=== PATIENT | male | born 1980 | race Caucasian/White ===

== ENCOUNTER → 2019-04-25 | Outpatient (CLI) | payer BC ==
--- NOTE | 2019-04-25 15:40 | US ---
EXAMINATION TYPE: US abdomen complete DATE OF EXAM: 04/25/2019 COMPARISON: NONE CLINICAL HISTORY: R10.9 abd pain. Pain EXAM MEASUREMENTS: Liver Length: 17.2 cm Gallbladder Wall: .3 cm CBD: .3 cm Spleen: 13 cm Right Kidney: 11.2 x 5.0 x 4.5 cm Left Kidney: 11.9 x 6.2 x 4.3 cm Pancreas: Obscured by bowel gas Liver: There is increased echogenicity of the hepatic parenchyma with diminished visualization of th e portal triads most commonly relating to hepatic steatosis and limiting evaluation for underlying he patic masses. Gallbladder: wnl Evidence for sonographic Novoa's sign: No CBD: wnl Spleen: wnl Right Kidney: wnl Left Kidney: wnl Upper IVC: wnl Abd Aorta: wnl The intrahepatic portion of the IVC and proximal abdominal aorta are within normal limits. There is no evidence of cholelithiasis. Common bile duct is unremarkable. The visualized portions of the rodrigez creas are homogenous. The spleen is unremarkable. Kidneys are symmetric and free of hydronephrosis. No renal lesions are seen. IMPRESSION: 1. Sonographic findings most commonly related to hepatic steatosis. Correlate with liver function ebony ts. 2. No sonographic evidence of cholelithiasis nor acute cholecystitis. 3. Obscuration of the pancreas by overlying bowel gas.
== END | disposition home or self-care (01) ==
LOC: RADUSWWP 12:17
PROVIDERS: ATTEND Family Medicine
DX: R10.9 Unspecified abdominal pain (principal)
CPT/HCPCS: 76700

== ENCOUNTER 2020-01-02 17:55 | Inpatient (IN) | payer BC ==
--- NOTE | 2020-01-02 18:39 | ED ---
General Adult HPI - General Chief complaint: Shortness of Breath Stated complaint: covid Time Seen by Provider: 01/02/20 18:08 Source: EMS, RN notes reviewed, old records reviewed Mode of arrival: EMS Limitations: no limitations - History of Present Illness Initial comments: 39 -year-old transferred from outside hospital for evaluation of flulike sympto ms, dyspnea, fatigue. Patient tested positive for coronavirus, test was performed on Sunday approximately one week ago. His symptoms of worsened over the past several days. He has past medical history of asthma. He states he has been running high fevers, he's had generalized weakness and fatigue. He's had cough and congestion, poor appetite. - Related Data Home Medications Medication Instructions Recorded Confirmed Fluticasone/Salmeterol [Advair 1 inhalation PO DAILY 12/23/14 12/24/14 250-50 Diskus] Previous Rx's Medication Instructions Recorded oxyCODONE HCL/ACETAMINOPHEN 1 each PO Q6HR PRN #30 tab 12/24/14 [Percocet 5-325 mg] Allergies Allergy/AdvReac Type Severity Reaction Status Date / Time No Known Allergies Allergy Verified 01/02/20 18:10 Review of Systems ROS Statement: Those systems with pertinent positive or pertinent negative responses have been documented in the HPI. ROS Other: All systems not noted in ROS Statement are negative. Past Medical History Past Medical History: Asthma, GERD/Reflux History of Any Multi-Drug Resistant Organisms: None Reported Past Surgical History: Hernia Repair Past Anesthesia/Blood Transfusion Reactions: No Reported Reaction Past Psychological History: No Psychological Hx Reported Smoking Status: Never smoker Past Alcohol Use History: Occasional Past Drug Use History: None Reported - Past Family History Mother Family Medical History: No Reported History General Exam Limitations: no limitations General appearance: alert, in no apparent distress Head exam: Present: atraumatic, normocephalic Eye exam: Present: normal appearance ENT exam: Present: normal exam Neck exam: Present: normal inspection. Absent: tenderness, meningismus Respiratory exam: Present: wheezes, decreased breath sounds. Absent: respiratory distress Cardiovascular Exam: Present: regular rate, normal rhythm GI/Abdominal exam: Present: soft. Absent: distended, tenderness Extremities exam: Present: normal inspection, normal capillary refill. Absent: pedal edema Neurological exam: Present: alert, oriented X3, CN II-XII intact. Absent: motor sensory deficit Psychiatric exam: Present: normal affect, normal mood Skin exam: Present: warm, dry, intact. Absent: cyanosis, diaphoretic Course Vital Signs 01/02/20 18:07 Temperature 98.7 F Pulse Rate 82 Respiratory 18 Rate Blood Pressure 149/84 O2 Sat by Pulse 98 Oximetry Medical Decision Making - Medical Decision Making 31-year-old male, transferred for asthma exacerbation, coronavirus. Requesting pulmonology consult. Patient has mild dyspnea, with wheezing bilaterally. He is maintaining his oxygenation on nasal cannula. Other vital signs are stable. His laboratory testing reveals normal white blood cell count, stable hemoglobin, normal electrolytes, normal kidney function, normal lactic acid. Patient did have a chest x-ray, this individual be loaded into the venous system. Repeat chest x-ray will be obtained in the morning. Repeat laboratory studies will be obtained in the morning. He is placed on steroids and albuterol given his history of asthma and current wheezing. He will be monitored closely. I discussed the case with [facility] hospitalists, who will admit with pulmonology on consult. Disposition Clinical Impression: Asthma with acute exacerbation, COVID-19 Disposition: ADMITTED IP TO THIS HOSP Condition: Stable Is patient prescribed a controlled substance at d/c from ED?: No Referrals: Noel Smith MD [Primary Care Provider] - 1-2 days Decision to Admit Reason: Admit from EC Decision Date: 01/02/20 Decision Time: 18:39
[2020-01-02] MEDS: SODIUM CHLORIDE 0.9% 1,000 ML IV SCH (19:35)
[2020-01-02] MEDS: ALBUTEROL HFA INHALER INHALATION SCH (20:26)
[2020-01-02] MEDS ORDERED: FAMOTIDINE 20 MG TAB PO SCH (21:30)
[2020-01-02] MEDS: MONTELUKAST 10 MG TAB PO SCH (21:49)
[2020-01-02] MEDS: ONDANSETRON 4 MG/2 ML VIAL IVP PRN (21:52)
[2020-01-03] MEDS: ACETAMINOPHEN TAB 325 MG TAB PO PRN ×2 (01:44→20:01)
[2020-01-03] MEDS: SODIUM CHLORIDE 0.9% 1,000 ML IV SCH ×2 (02:39→18:24)
[2020-01-03 06:56] LABS: Basophils % (A) 0 %; Eosinophils % (A) 0 %; HCT 43.8 % (39.0-53.0); HGB 15.4 gm/dL (13.0-17.5); Lymphocytes # (A) 1.1 k/uL (1.0-4.8); Lymphocytes % (A) 15 %; MCH 30.4 pg (25.0-35.0); MCHC 35.1 g/dL (31.0-37.0); MCV 86.7 fL (80.0-100.0); Mean Platelet Volume 7.7; Monocytes # (A) 0.3 k/uL (0-1.0); Monocytes % (A) 4 %; Neutrophils # (A) 6.1 k/uL (1.3-7.7); Neutrophils % (A) 80 %; Platelet Count 133 k/uL (150-450); RBC 5.06 m/uL (4.30-5.90); RDW 12.4 % (11.5-15.5); WBC 7.7 k/uL (3.8-10.6)
--- NOTE | 2020-01-03 07:18 | XR ---
EXAMINATION TYPE: XR chest 1V portable DATE OF EXAM: 01/03/2020 CLINICAL HISTORY: Difficulty breathing progress study. covid 19 pneumonia TECHNIQUE: Single AP portable upright view of the chest is obtained. COMPARISON: Outside chest x-ray from yesterday. FINDINGS: Peripheral infiltrates left mid to lower lung and right midlung redemonstrated. Former sli ghtly more prominent, latter stable. Background low lung volumes. Cardiac silhouette size is stable a nd within normal limits. Osseous structures intact. IMPRESSION: Worsening peripheral left mid to lower lung acute infiltrates. Stable peripheral right mi dlung acute infiltrate. Background low lung volumes redemonstrated.
[2020-01-03 07:34] LABS: African American GFR (CKD) >90 (>60 ml/min/1.73 sqM); Anion Gap 6 mmol/L; Blood Urea Nitrogen 10 mg/dL (9-20); Calcium 8.3 mg/dL (8.4-10.2); Carbon Dioxide 29 mmol/L (22-30); Chloride 100 mmol/L (98-107); Glucose 112 mg/dL (74-99); Non-African American GFR(CKD) >90 (>60 ml/min/1.73 sqM); Potassium 3.8 mmol/L (3.5-5.1); Sodium 135 mmol/L (137-145)
[2020-01-03] MEDS: ALBUTEROL HFA INHALER INHALATION SCH ×4 (08:26→21:07)
[2020-01-03] MEDS ORDERED: predniSONE 20 MG TAB PO SCH (09:00)
[2020-01-03] MEDS ORDERED: ENOXAPARIN 40 MG/0.4 ML SYRINGE SQ SCH ×2 (09:45→10:00)
[2020-01-03 10:33] LABS: D-Dimer 0.25 mg/L FEU (<0.60)
[2020-01-03 10:38] LABS: C Reactive Protein 69.2 mg/L (<10.0)
[2020-01-03] MEDS: ENOXAPARIN 40 MG/0.4 ML SYRINGE SQ SCH (11:03)
[2020-01-03] MEDS: AZITHROMYCIN 500 MG TAB PO SCH (11:03)
[2020-01-03] MEDS: FLUTICASONE 50MCG/SPRAY NASAL 16GM EA NOSTRIL SCH (11:04)
[2020-01-03] MEDS: ONDANSETRON 4 MG/2 ML VIAL IVP PRN (11:19)
--- NOTE | 2020-01-03 12:44 | P.CNPUL ---
History of Present Illness Consult date: 01/03/20 Requesting physician: Juan Manuel Weiner Reason for consult: dyspnea, abnormal CXR/CT (Left mid to lower lung infiltrate with right midlung infiltrate) Chief complaint: Shortness of breath, fever, CoVID positive History of present illness: This is a very pleasant 39-year-old gentleman who follows with Dr. Smith as his primary care provider. He has a history of asthma treated with Advair, Singulair and albuterol in the outpatient setting. Approximately 1 week ago he developed fever, chills, diarrhea, worsening shortness of breath cough and congestion. He did test positive for CoVID 19 and was treating his symptoms at home. Yesterday he had worsening fatigue and fever and presented to [facility] and subsequently transferred here by EMS for further evaluation and care. He feels he may have been exposed at work where coworkers have been positive. He works at the [employer]. Chest x-ray reveals left mid to lower lung acute infiltrates and stent right midlung infiltrate. He is seen today in consultation on the regular medical floor. He is currently sitting up in bed. Awake and alert in no acute distress. He is maintaining O2 saturation in the mid 90s on 2 L/m per nasal cannula. T-max 101.9. Currently 99.4. White count 7.7. Hemoglobin 15.4. RDW 12.4. Platelets 133. Sodium 135. Potassium 3.8. Creatinine 1.04. Inflammatory markers added today revealed fibrinogen 573. LDH 847. Creatinine kinase 318. C-reactive protein 69.2. D- dimer 0.25. He's been initiated on azithromycin, Pepcid, Lovenox 40 mg daily, prednisone. Continue on Symbicort, albuterol, Singulair. Review of Systems REVIEW OF SYSTEMS: CONSTITUTIONAL: Fever, chills, fatigue. Denies any recent significant weight loss or weight gain. EYES: Denies change in vision. EARS, NOSE, MOUTH, THROAT: Denies headaches, denies sore throat. CARDIOVASCULAR: Denies chest pain, palpitations or syncopal episodes. RESPIRATORY: Positive for shortness of breath, cough, congestion no hemoptysis. GASTROINTESTINAL: Positive for nausea, diarrhea GENITOURINARY: Denies hematuria, denies infections. MUSKULOSKELETAL: Denies pain, denies swelling. INTEGUMENTARY: Denies rash, denies eczema. NEUROLOGICAL: Denies recent memory loss, no recent seizure activity. PSYCHIATRIC: Denies anxiety, denies depression. HEMATOLOGIC/LYMPHATIC: Denies anemia, denies enlarged lymph nodes. Past Medical History Past Medical History: Asthma, GERD/Reflux History of Any Multi-Drug Resistant Organisms: None Reported Past Surgical History: Hernia Repair Past Anesthesia/Blood Transfusion Reactions: No Reported Reaction Past Psychological History: No Psychological Hx Reported Smoking Status: Never smoker Past Alcohol Use History: Occasional Past Drug Use History: None Reported - Past Family History Mother Family Medical History: No Reported History Medications and Allergies Home Medications Medication Instructions Recorded Confirmed Type Fluticasone/Salmeterol [Advair 1 puff INHALATION RT-DAILY 12/23/14 01/02/20 History 250-50 Diskus] Albuterol Nebulized [Ventolin 2.5 mg INHALATION RT-QID PRN 01/02/20 01/02/20 History Nebulized] Famotidine 20 mg PO HS 01/02/20 01/02/20 History Fluticasone Nasal [place] [Flonase 2 spr EA NOSTRIL DAILY 01/02/20 01/02/20 History Nasal [place]] Montelukast [Singulair] 10 mg PO HS 01/02/20 01/02/20 History Allergies Allergy/AdvReac Type Severity Reaction Status Date / Time No Known Allergies Allergy Verified 01/02/20 19:01 Physical Exam Vitals: Vital Signs Temp Pulse Pulse Resp BP BP Pulse Ox 01/03/20 08:00 83 18 01/03/20 07:00 99.4 F 83 18 116/78 95 01/03/20 04:01 98.5 F 01/03/20 01:39 101.9 F H 90 20 130/76 95 01/02/20 20:59 99.1 F 90 18 129/76 98 01/02/20 20:11 99.0 F 85 19 128/82 97 01/02/20 19:45 99.2 F 90 19 144/92 97 01/02/20 18:07 98.7 F 82 18 149/84 98 Intake and Output 01/02/20 01/03/20 01/03/20 22:59 06:59 14:59 Other: Voiding Method Toilet # Voids 1 3 Weight 99.79 kg GENERAL EXAM: Alert, very pleasant 39-year-old gentleman, on 2 L nasal cannula, fairly comfortable in no apparent distress. HEAD: Normocephalic. EYES: Normal reaction of pupils, equal size. NOSE: Clear with pink turbinates. THROAT: No erythema or exudates. NECK: No masses, no JVD. CHEST: No chest wall deformity. LUNGS: Equal air entry with few scattered rhonchi. CVS: S1 and S2 normal with no audible murmur, regular rhythm. ABDOMEN: No hepatosplenomegaly, normal bowel sounds, no guarding or rigidity. SPINE: No scoliosis or deformity SKIN: No rashes CENTRAL NERVOUS SYSTEM: No focal deficits, tone is normal in all 4 extremities. EXTREMITIES: There is no peripheral edema. No clubbing, no cyanosis. Peripheral pulses are intact. Results - Laboratory Findings CBC and BMP: 01/03/20 06:29 01/03/20 06:29 PT/INR, D-dimer D-Dimer 0.25 mg/L FEU (<0.60) 01/03/20 10:04 Abnormal lab findings: Abnormal Labs 01/03/20 01/03/20 01/03/20 06:29 06:29 10:04 Plt Count 133 L Fibrinogen 573 H Sodium 135 L Glucose 112 H Calcium 8.3 L Lactate Dehydrogenase Creatine Kinase C-Reactive Protein 01/03/20 10:04 Plt Count Fibrinogen Sodium Glucose Calcium Lactate Dehydrogenase 847 H Creatine Kinase 318 H C-Reactive Protein 69.2 H - Diagnostic Findings Chest x-ray: image reviewed Assessment and Plan Assessment: 1 Acute CoVID 19 pneumonitis 2 Acute hypoxic respiratory failure secondary to above 3 Acute exacerbation of moderate persistent chronic bronchial asthma 4 Elevated inflammatory markers secondary to above Plan: The patient was seen and evaluated by Dr. Quiñones Chest x-ray and labs reviewed Continue isolation precautions Continue azithromycin, Symbicort, albuterol, Singulair Continue Lovenox, prednisone, Pepcid Repeat chest x-ray in a.m. Titrate FiO2 as tolerated We will continue to follow and make further recommendations based on his clinical status I, the cosigning physician, performed a history & physical examination of the patient. Lungs sounds with few scattered rhonchi. Maintaining good O2 saturations in the 90s on 2 L/m per nasal cannula. I discussed the assessment and plan of care with my nurse practitioner, Jennifer Perez. I attest to the above consultation as dictated by her. Time with Patient: Greater than 30
--- NOTE | 2020-01-03 14:03 | HP ---
HISTORY AND PHYSICAL CHIEF COMPLAINT: Shortness of breath, cough, fatigue and flu-like symptoms. HISTORY OF PRESENT ILLNESS: This 39-year-old gentleman with a past medical history of asthma, GERD, being followed by Dr. Smith in the outpatient setting, was not feeling well over the past couple of weeks. The patient initially had flu-like symptoms and subsequently the patient had shortness of breath and cough and sputum and fatigue and generalized weakness and poor appetite. Chest congestion also reported. The patient had COVID test done as well and found to be positive. Yesterday the patient went to [facility] and subsequently transferred to [facility] for further evaluation and treatment. Chest x-ray showed shadows indicating pneumonia. Pulmonary consultation has been sought. The patient also had biomarkers of active COVID infection with increase fibrin, increased LDH, increased CK and C-reactive protein also. Platelets are 133. There is no history of fever, rigors or chills. No history of headache, loss of consciousness, seizures at this time. The patient works in the [employer] and apparently a few of his colleagues had tested positive, according to him. PAST MEDICAL HISTORY: History of asthma, GERD. MEDICATIONS: Home medications are Singulair, Advair b.i.d., Flonase, and Ventolin. ALLERGIES: None. FAMILY HISTORY: No history of heart disease or strokes in the family. SOCIAL HISTORY: No history of smoking. No history of alcohol intake. REVIEW OF SYSTEMS: ENT: No diminished vision or hearing. CARDIOVASCULAR: As mentioned earlier. RESPIRATORY: As mentioned earlier. GI: No nausea, vomiting, diarrhea. : No dysuria. NERVOUS SYSTEM: No numbness or weakness. ALLERGY/IMMUNOLOGY: Asthma present. MUSCULOSKELETAL: As mentioned earlier. HEMATOLOGY: Anemia. ENDOCRINE: No history of diabetes mellitus. CONSTITUTIONAL: As mentioned earlier. DERMATOLOGY: Negative. RHEUMATOLOGY: Negative. PSYCHIATRY: As mentioned earlier. PHYSICAL EXAMINATION: GENERAL: Patient is alert and oriented times three. VITAL SIGNS: Pulse 83, blood pressure 116/78, respirations 18, temperature 99.4, pulse ox 94% on 2 liters. HEENT: Conjunctivae normal. Oral mucosa moist. NECK: No jugular venous distention. No carotid bruits. No lymph node enlargement. RESPIRATORY: Breath sounds diminished at the bases. A few rhonchi, no crackles. HEART: S1 and S2, muffled. ABDOMEN: Soft, no tenderness. No masses palpable. EXTREMITIES: No edema, no swelling. NERVOUS: No focal deficits. LABS: WBC 7.7, hemoglobin is 15.4, platelets 133. Fibrinogen 573. Sodium 135 and LDH is 847. Creatine kinase 318 and C-reactive protein is 16.2. Other labs are noted. ASSESSMENT: 1. Acute COVID-19 infection with acute bilateral pneumonia, possibly viral pneumonia secondary to COVID-19. 2. Hyponatremia. 3. Bronchial asthma acute exacerbation on chronic intermittent bronchial asthma. 4. Thrombocytopenia. 5. Elevated LDH and increase in the creatine kinase. 6. Increased CRP. 7. History of bronchial asthma. 8. History of gastroesophageal reflux disease. RECOMMENDATIONS AND DISCUSSION: In this 39-year-old gentleman who presented with multiple complex medical issues, at this time I recommend to continue the current management and continue symptomatic treatment. Continue the bronchodilators. Continue the antibiotics. We will check a procalcitonin. Oral steroids. We will also continue to monitor biomarkers as well as I would also recommend a troponin and cardiac workup as well. Infectious Disease has been consulted. We will check his eligibility for Remdesivir which could be an option here. I would also recommend a CT scan of the chest also as well. The prognosis is guarded because of multiple complex medical issues. Further recommendations to follow. See orders for further details. Symptomatic treatment also will be provided. MMODL / IJN: [id number] / MTDD
[2020-01-03 14:16] VITALS: BMI 29.8
--- NOTE | 2020-01-03 15:02 | CT ---
EXAMINATION TYPE: CT chest wo con DATE OF EXAM: 01/03/2020 COMPARISON: None HISTORY: covid [address] DLP: 1024 mGycm Automated exposure control for dose reduction was used. There are patchy areas of peripheral pneumonic infiltrate in the lungs bilaterally. There is pleural thickening and minimal fluid at the posterior lung bases. There is some patchy atelectasis at the pos terior lung bases. There is no mediastinal adenopathy. There are no hilar masses. The bony thorax is intact. IMPRESSION: Patchy bilateral airspace pneumonia. Mild patchy pleural thickening and atelectasis at the posterior lung bases. Mild fatty infiltration of the liver.
[2020-01-03 17:51] LABS: Ferritin 2602.5 ng/mL (22.0-322.0)
[2020-01-03] MEDS ORDERED: IPRATROPIUM-ALBUTEROL 3 ML NEB INHALATION PRN (18:34)
[2020-01-03 18:38] LABS: Appearance,Urine Clear (Clear); Bilirubin,Urine Negative (Negative); Blood,Urine Negative (Negative); Color,Urine Yellow; Glucose,Urine (UA) Negative (Negative); Ketones,Urine Negative (Negative); Leukocyte Esterase,Urine Negative (Negative); Nitrite,Urine Negative (Negative); Protein,Urine Trace (Negative); Specific Gravity,Urine 1.012 (1.001-1.035); Urobilinogen,Urine <2.0 mg/dL (<2.0)
[2020-01-03] MEDS: MONTELUKAST 10 MG TAB PO SCH (20:03)
[2020-01-03] MEDS: FAMOTIDINE 20 MG TAB PO SCH (20:03)
[2020-01-03] MEDS: SYMBICORT 160-4.5 MCG INHALER INHALATION SCH (21:07)
--- NOTE | 2020-01-04 00:11 | P.CONS ---
History of Present Illness - Reason for Consult Consult date: 01/03/20 covid 19 Requesting physician: Juan Manuel Weiner - Chief Complaint Fever and shortness of breath x one week - History of Present Illness Patient is 39-year-old male with a past medical history significant for asthma started having a problem with a fever about a week ago for which the patient has been evaluated at an urgent care last Sunday and apparently was diagnosed with the Covid19, patient has been advised symptomatic treatment however the patient be complaining of the daily spikes of fever and feeling weak, patient has been complaining of some shortness of breath, he also have a cough which is mild to moderate intensity is mostly dry in nature now being up any sputum. Denies any nausea no vomiting no comment can he did have some diarrhea but no loss of taste with persistent symptoms rather slight worsening he presented to [facility] yesterday patient subsequently has been transferred to [facility] for further management, since admission to the hospital the patient has been mostly afebrile highest temperature has been 99.1 patient did have a normal white count and no lymphopenia, patient did have a chest x-ray patient has worsening peripheral left mid to lower lung acute infiltrate, no LFTs has been done, patient has been evaluated before this morning and did ordered CRP, LDH and procalcitonin which are currently pending Review of Systems Positive point has been mentioned in the HPI rest of the systems are negative Past Medical History Past Medical History: Asthma, GERD/Reflux History of Any Multi-Drug Resistant Organisms: None Reported Past Surgical History: Hernia Repair Past Anesthesia/Blood Transfusion Reactions: No Reported Reaction Past Psychological History: No Psychological Hx Reported Smoking Status: Never smoker Past Alcohol Use History: Occasional Past Drug Use History: None Reported - Past Family History Mother Family Medical History: No Reported History Medications and Allergies Home Medications Medication Instructions Recorded Confirmed Type Fluticasone/Salmeterol [Advair 1 puff INHALATION RT-DAILY 12/23/14 01/02/20 History 250-50 Diskus] Albuterol Nebulized [Ventolin 2.5 mg INHALATION RT-QID PRN 01/02/20 01/02/20 History Nebulized] Famotidine 20 mg PO HS 01/02/20 01/02/20 History Fluticasone Nasal [place] [Flonase 2 spr EA NOSTRIL DAILY 01/02/20 01/02/20 History Nasal [place]] Montelukast [Singulair] 10 mg PO HS 01/02/20 01/02/20 History Allergies Allergy/AdvReac Type Severity Reaction Status Date / Time No Known Allergies Allergy Verified 01/02/20 19:01 Physical Exam Vitals: Vital Signs Temp Pulse Resp BP Pulse Ox 01/03/20 20:46 99.5 F 01/03/20 19:08 100.8 F H 96 20 135/69 94 L 01/03/20 16:47 97 01/03/20 16:00 84 17 01/03/20 14:40 98.6 F 84 17 116/71 94 L 01/03/20 08:00 83 18 01/03/20 07:00 99.4 F 83 18 116/78 95 01/03/20 04:01 98.5 F 01/03/20 01:39 101.9 F H 90 20 130/76 95 Intake and Output 01/03/20 01/03/20 01/04/20 14:59 22:59 06:59 Other: Voiding Method Toilet # Voids 2 2 Weight 99.79 kg GENERAL DESCRIPTION: Middle-aged male lying in bed, no distress. No tachypnea or accessory muscle of respiration use. HEENT: Shows Pallor , no scleral icterus. Oral mucous membrane is dry. No phary ngeal erythema or thrush NECK: Trachea central, no thyromegaly. LUNGS: Unlabored breathing. Decreased intensity of breath sounds. No wheeze or crackle. HEART: S1, S2, regular rate and rhythm. No loud murmur ABDOMEN: Soft, no tenderness , guarding or rigidity, no organomegaly EXTREMITIES: No edema of feet. SKIN: No rash, no masses palpable. NEUROLOGICAL: The patient is awake, alert, oriented x3, mood and affect normal. Results CBC & Chem 7: 01/03/20 06:29 01/03/20 06:29 Labs: Abnormal Lab Results - Last 24 Hours (Table) 01/03/20 01/03/20 01/03/20 Range/Units 06:29 06:29 10:04 Plt Count 133 L (150-450) k/uL Fibrinogen 573 H (200-500) mg/dL Sodium 135 L (137-145) mmol/L Glucose 112 H (74-99) mg/dL Calcium 8.3 L (8.4-10.2) mg/dL Ferritin (22.0-322.0) ng/mL Lactate Dehydrogenase (313-618) U/L Creatine Kinase (55-170) U/L C-Reactive Protein (<10.0) mg/L Procalcitonin (0.02-0.09) ng/mL Urine Protein (Negative) 01/03/20 01/03/20 01/03/20 Range/Units 10:04 10:04 18:00 Plt Count (150-450) k/uL Fibrinogen (200-500) mg/dL Sodium (137-145) mmol/L Glucose (74-99) mg/dL Calcium (8.4-10.2) mg/dL Ferritin 2602.5 H (22.0-322.0) ng/mL Lactate Dehydrogenase 847 H (313-618) U/L Creatine Kinase 318 H (55-170) U/L C-Reactive Protein 69.2 H (<10.0) mg/L Procalcitonin 0.16 H (0.02-0.09) ng/mL Urine Protein Trace H (Negative) Assessment and Plan Assessment: 1- patient presented to the hospital with fever of 1 week duration also with increasing shortness of breath and cough with slight worsening of the chest x- ray finding with concern for acute Covid 19 pneumonia, unfortunately blood work done this morning remains to be pending to see his eligibility for Remdesivir , the patient only symptom for more than 7 days, that may disqualify him for therapy, however will discuss further with pharmacist once the blood work is available (1) Pneumonia due to COVID-19 virus Current Visit: Yes Status: Acute Code(s): U07.1 - COVID-19; J12.89 - OTHER VIRAL PNEUMONIA SNOMED Code(s): 974869174 Plan: 1- patient has been started on Zithromax Lovenox and penicillin to continue 2-we will add zinc sulfate 3-droplet isolation 4-discuss with pharmacy once blood work completed to see if he still qualify for Remdesivir We will follow on clinical condition and cultures to further adjust medication if needed Thank you for this consultation will follow this patient with you Time with Patient: Greater than 30
[2020-01-04 06:49] LABS: Basophils % (A) 0 %; Eosinophils % (A) 0 %; HCT 41.6 % (39.0-53.0); HGB 13.5 gm/dL (13.0-17.5); Lymphocytes # (A) 0.9 k/uL (1.0-4.8); Lymphocytes % (A) 10 %; MCH 28.6 pg (25.0-35.0); MCHC 32.5 g/dL (31.0-37.0); MCV 87.9 fL (80.0-100.0); Mean Platelet Volume 7.2; Monocytes # (A) 0.4 k/uL (0-1.0); Monocytes % (A) 4 %; Neutrophils # (A) 8.1 k/uL (1.3-7.7); Neutrophils % (A) 86 %; Platelet Count 209 k/uL (150-450); RBC 4.73 m/uL (4.30-5.90); WBC 9.5 k/uL (3.8-10.6)
[2020-01-04] MEDS: ENOXAPARIN 40 MG/0.4 ML SYRINGE SQ SCH ×2 (07:50→20:26)
[2020-01-04] MEDS: AZITHROMYCIN 500 MG TAB PO SCH (07:51)
[2020-01-04] MEDS: predniSONE 10 MG TAB PO SCH (07:51)
[2020-01-04] MEDS: MULTIVITAMINS, THERA 1 EACH TAB PO SCH (07:51)
[2020-01-04] MEDS: FAMOTIDINE 20 MG TAB PO SCH ×2 (07:51→20:27)
[2020-01-04] MEDS ORDERED: FLUTICASONE INHALATION SCH (08:00)
[2020-01-04] MEDS ORDERED: SALMETEROL INHALATION SCH (08:00)
[2020-01-04] MEDS: ALBUTEROL HFA INHALER INHALATION SCH ×4 (08:08→19:29)
[2020-01-04] MEDS: SYMBICORT 160-4.5 MCG INHALER INHALATION SCH ×2 (08:08→19:29)
--- NOTE | 2020-01-04 08:23 | XR ---
EXAMINATION TYPE: XR chest 1V portable DATE OF EXAM: 01/04/2020 COMPARISON: 01/03/2020 INDICATION: Pneumonia TECHNIQUE: Single frontal view of the chest is obtained. FINDINGS: The heart size is normal. The pulmonary vasculature is normal. There is increasing linear opacity along the minor fissure. Correlate for atelectasis. There is some peripheral infiltrate through the left lung. Correlate for pneumonia. Follow-up is lakisha mmended. Findings are worsening. IMPRESSION: 1. Increasing platelike atelectasis right midlung. 2. Mild worsening of the left lower lobe infiltrate.
[2020-01-04 09:45] LABS: African American GFR (CKD) 110.2 (60.0-200.0); Albumin 3.8 g/dL (3.80-4.90); Albumin/Globulin Ratio 2.11 (1.60-3.17); Anion Gap 8.2 mmol/L (4.00-12.00); C Reactive Protein 7.4 mg/dL (0.0-0.8); Calcium 8.4 mg/dL (8.7-10.3); Carbon Dioxide 27.8 mmol/L (21.6-31.8); Globulin 1.8 g/dL (1.6-3.3); Non-African American GFR(CKD) 95.1 (60.0-200.0); Potassium 4.1 mmol/L (3.5-5.5); Total Bilirubin 0.5 mg/dL (0.3-1.2); Total Protein 5.6 g/dL (6.2-8.2)
[2020-01-04] MEDS: ZINC SULFATE 220 MG CAP PO SCH ×2 (13:01→21:28)
[2020-01-04] MEDS: FLUTICASONE 50MCG/SPRAY NASAL 16GM EA NOSTRIL SCH (13:02)
--- NOTE | 2020-01-04 13:27 | P.PN ---
Subjective Progress Note Date: 01/04/20 Principal diagnosis: CoVID 19 pneumonitis This is a very pleasant 39-year-old gentleman who follows with Dr. Smith as his primary care provider. He has a history of asthma treated with Advair, Singulair and albuterol in the outpatient setting. Approximately 1 week ago he developed fever, chills, diarrhea, worsening shortness of breath cough and congestion. He did test positive for CoVID 19 and was treating his symptoms at home. Yesterday he had worsening fatigue and fever and presented to [facility] and subsequently transferred here by EMS for further evaluation and care. He feels he may have been exposed at work where coworkers have been positive. He works at the [employer]. Chest x-ray reveals left mid to lower lung acute infiltrates and stent right midlung infiltrate. He is seen today in consultation on the regular medical floor. He is currently sitting up in bed. Awake and alert in no acute distress. He is maintaining O2 saturation in the mid 90s on 2 L/m per nasal cannula. T-max 101.9. Currently 99.4. White count 7.7. Hemoglobin 15.4. RDW 12.4. Platelets 133. Sodium 135. Potassium 3.8. Creatinine 1.04. Inflammatory markers added today revealed fibrinogen 573. LDH 847. Creatinine kinase 318. C-reactive protein 69.2. D- dimer 0.25. He's been initiated on azithromycin, Pepcid, Lovenox 40 mg daily, prednisone. Continue on Symbicort, albuterol, Singulair. The patient is seen today 01/04/2020 in follow-up on the regular medical floor. He is currently sitting up in bed. Awake and alert in no acute distress. He is comfortable at rest however went up doing any minimal activity he gets significant dyspnea on exertion. He is now on 3 L nasal cannula and maintaining O2 saturation in the low 90s. Computed tomography scan of the chest without contrast from yesterday revealed patchy bilateral airspace pneumonia. Mild patchy pleural thickening and atelectasis posterior lung bases. Mild fatty infiltration of the liver. White count 9.5. Hemoglobin 13.5. D-dimer 0.22. Sodium 137. Potassium 4.1. Creatinine 1.0. LDH 338. C-reactive protein 7.4. Pro-calcitonin 0.16. He remains on Lovenox, Pepcid, prednisone, zinc. Antibiotics in the form of azithromycin. Symbicort and bronchodilators. Objective - Vital Signs Vital signs: Vital Signs Temp 98.8 F 01/04/20 01:18 Pulse 91 01/04/20 08:00 Resp 18 01/04/20 08:00 BP 123/71 01/04/20 07:00 Pulse Ox 92 L 01/04/20 12:10 Intake & Output 01/03/20 01/04/20 01/04/20 18:59 06:59 18:59 Weight 99.79 kg Other: Voiding Method Toilet Toilet Toilet # Voids 2 2 - Exam GENERAL EXAM: Alert, very pleasant 39-year-old gentleman, on 3 L nasal cannula, fairly comfortable in no apparent distress. HEAD: Normocephalic. EYES: Normal reaction of pupils, equal size. NOSE: Clear with pink turbinates. THROAT: No erythema or exudates. NECK: No masses, no JVD. CHEST: No chest wall deformity. LUNGS: Equal air entry with few scattered rhonchi. CVS: S1 and S2 normal with no audible murmur, regular rhythm. ABDOMEN: No hepatosplenomegaly, normal bowel sounds, no guarding or rigidity. SPINE: No scoliosis or deformity SKIN: No rashes CENTRAL NERVOUS SYSTEM: No focal deficits, tone is normal in all 4 extremities. EXTREMITIES: There is no peripheral edema. No clubbing, no cyanosis. Peripheral pulses are intact. - Labs CBC & Chem 7: 01/04/20 06:20 01/04/20 06:20 Labs: Abnormal Lab Results - Last 24 Hours (Table) 01/03/20 01/03/20 01/03/20 Range/Units 10:04 10:04 18:00 Neutrophils # (1.3-7.7) k/uL Lymphocytes # (1.0-4.8) k/uL BUN/Creatinine Ratio (12.00-20.00) Ratio Calcium (8.7-10.3) mg/dL Ferritin 2602.5 H (22.0-322.0) ng/mL Lactate Dehydrogenase (120-246) U/L C-Reactive Protein (0.0-0.8) mg/dL Total Protein (6.2-8.2) g/dL Procalcitonin 0.16 H (0.02-0.09) ng/mL Urine Protein Trace H (Negative) 01/04/20 01/04/20 01/04/20 Range/Units 06:20 06:20 06:20 Neutrophils # 8.1 H (1.3-7.7) k/uL Lymphocytes # 0.9 L (1.0-4.8) k/uL BUN/Creatinine Ratio 11.00 L (12.00-20.00) Ratio Calcium 8.4 L (8.7-10.3) mg/dL Ferritin (22.0-322.0) ng/mL Lactate Dehydrogenase 338 H (120-246) U/L C-Reactive Protein 7.4 H (0.0-0.8) mg/dL Total Protein 5.6 L (6.2-8.2) g/dL Procalcitonin 0.16 H (0.02-0.09) ng/mL Urine Protein (Negative) Assessment and Plan Assessment: 1 Acute CoVID 19 pneumonitis 2 Acute hypoxic respiratory failure secondary to above 3 Acute exacerbation of moderate persistent chronic bronchial asthma 4 Elevated inflammatory markers secondary to above Plan: The patient was seen and evaluated by Dr. Quiñones CAT scan and labs reviewed, d-dimer within normal limits Continue isolation precautions Continue azithromycin, Symbicort, albuterol, Singulair Continue Lovenox, prednisone, Pepcid, zinc Repeat chest x-ray in a.m. Titrate FiO2 as tolerated We will continue to follow and make further recommendations based on his clini golden status I, the cosigning physician, performed a history & physical examination of the patient. Lungs sounds with few scattered rhonchi. Maintaining good O2 saturations in the 90s on 3 L/m per nasal cannula. I discussed the assessment and plan of care with my nurse practitioner, Jennifer Perez. I attest to the above note as dictated by her.
--- NOTE | 2020-01-04 16:14 | PN ---
PROGRESS NOTE DATE OF SERVICE: 01/04/2020 INTERVAL HISTORY: This 39-year-old gentleman is being followed Dr. Smith in the outpatient setting, who admitted with significant COVID pneumonia and acute hypoxic respiratory failure. The patient was started on empiric antibiotics also. The patient is also hypoxic at this time. Patient appears to be slightly more short of breath compared to yesterday. Most recent chest x-ray showed some slight worsening compared to previous one and Infectious Disease and as well as Pulmonary are following the patient closely. PAST MEDICAL HISTORY: Reviewed. REVIEW OF SYSTEMS: CARDIOVASCULAR: No angina or palpitations. RESPIRATORY: As mentioned earlier. GI: As mentioned earlier. : No dysuria. NERVOUS SYSTEM: No numbness or weakness. CURRENT MEDICATIONS: Reviewed and include Tylenol, Ventolin, DuoNeb, Zithromax, Symbicort, Lovenox, Pepcid, Flonase, Singulair, multivitamins, Zofran, prednisone, oral zinc. PHYSICAL EXAMINATION: GENERAL: Patient is alert and oriented times three. VITAL SIGNS: Pulse 91, blood pressure 123/57, respirations 18, temperature normal, pulse ox 98% on 3 liters. HEENT: Conjunctivae normal. Oral mucosa moist. NECK: No jugular venous distention. No carotid bruits. No lymph node enlargement. RESPIRATORY: Breath sounds diminished at the bases. Bilateral scattered rhonchi and crackles. Breathing efforts are markedly increased. HEART: S1 and S2, muffled. ABDOMEN: Soft, no tenderness. EXTREMITIES: No edema, no swelling. NERVOUS: No focal deficits. LABORATORY DATA: CBC within normal limits. Calcium is 8.4. LDH is 338. C-reactive protein is 7.4, Procalcitonin 0.16. ASSESSMENT: 1. Acute COVID-19 infection with acute bilateral pneumonia, possibly viral pneumonia with acute hypoxic respiratory failure secondary to COVID-19. 2. Hyponatremia. 3. Bronchial asthma acute exacerbation with chronic intermittent bronchial asthma. 4. Thrombocytopenia. 5. Elevated LDH and increased creatine kinase. 6. Increased CRP. 7. History of bronchial asthma. 8. History of gastroesophageal reflux disease. 9. History of elevated procalcitonin. RECOMMENDATIONS AND DISCUSSION: In this 39-year-old gentleman who presented with multiple complex medical issues, continue with the current medications. Continue with intensive bronchodilator treatment and continue empiric antibiotics. I would also recommend a D-dimer. Dr. Quiñones saw the patient and recommended D-dimer. If the D-dimer is more than 0.6, we will obtain a CT angio. Otherwise add zinc to the current regimen. Continue with Lovenox. I would also recommend Infectious Disease evaluation and possibly consider Remdesivir. Prognosis is guarded because of multiple complex medical issues. Further recommendations to follow. MMJIGNESHL / IJN: [id number] /
[2020-01-04] MEDS: MONTELUKAST 10 MG TAB PO SCH (20:26)
[2020-01-04] MEDS: ACETAMINOPHEN TAB 325 MG TAB PO PRN (20:26)
[2020-01-04 22:50] LABS: INR 0.92 (0.90-1.11); Prothrombin Time 9.9 sec (9.9-11.9)
--- NOTE | 2020-01-05 03:06 | PN ---
PROGRESS NOTE DATE OF SERVICE: 01/04/2020 REASON FOR FOLLOWUP: Acute COVID-19 pneumonia. INTERVAL HISTORY: The patient did spike a fever yesterday of 101.9 as well as 100.8. The patient also requiring supplemental oxygen of 3 L nasal cannula. The patient denies having any chest pain. Breathing slightly comfortably. The cough has decreased in intensity. No nausea, no vomiting. No abdominal pain or diarrhea. PHYSICAL EXAMINATION: Blood pressure 136/82 with a pulse of 98, temperature of 98, T-max is 101. He is 94% on 3 L nasal cannula General description is a young male lying in bed in no distress. RESPIRATORY SYSTEM: Unlabored breathing, decreased intense breath sounds. No wheeze. HEART: S1, S2. Regular rate and rhythm. ABDOMEN: Soft, no tenderness. LABS: Hemoglobin 13.5, white count 9.5. CRP did improve to 7.4. The LDH is 338. DIAGNOSTIC IMPRESSION AND PLAN: Patient with acute COVID-19 pneumonia. Patient is currently covered with the Zithromax, Lovenox, prednisone and zinc. He may benefit from Remdesivir. This was discussed in detail with the pharmacist. However, the patient currently does not qualify for remdisivir per institution policy as the patient has symptoms for more than 7 days. This will be discussed further with MORGUE TECHNICIAN tomorrow as the patient will definitely benefit from Remdesivir at this point to prevent progressive respiratory failure and further complication. MONETL / JAMES: [id number] / MTDD
[2020-01-05 06:39] LABS: Basophils % (A) 0 %; Eosinophils % (A) 0 %; HCT 41.2 % (39.0-53.0); HGB 13.9 gm/dL (13.0-17.5); Lymphocytes # (A) 1.4 k/uL (1.0-4.8); Lymphocytes % (A) 11 %; MCH 29.8 pg (25.0-35.0); MCHC 33.8 g/dL (31.0-37.0); MCV 88.2 fL (80.0-100.0); Monocytes # (A) 0.6 k/uL (0-1.0); Monocytes % (A) 5 %; Neutrophils # (A) 10.3 k/uL (1.3-7.7); Neutrophils % (A) 83 %; Platelet Count 285 k/uL (150-450); RBC 4.67 m/uL (4.30-5.90); RDW 12.5 % (11.5-15.5); WBC 12.4 k/uL (3.8-10.6)
--- NOTE | 2020-01-05 08:01 | XR ---
EXAMINATION TYPE: XR chest 1V portable DATE OF EXAM: 01/05/2020 COMPARISON: 01/04/2020 INDICATION: Covid 19, increasing shortness of breath TECHNIQUE: Single frontal view of the chest is obtained. FINDINGS: The heart size is normal. The pulmonary vasculature is normal. Mild infiltrate is within the right mid and upper lung field. Mild peripheral infiltrates at the left base. IMPRESSION: 1. Findings compatible with a typical pneumonia. There may be slight improvement from recent comparis on but remains greater than the initial 01/03/2020 exam
[2020-01-05] MEDS: predniSONE 10 MG TAB PO SCH (08:50)
[2020-01-05] MEDS: MULTIVITAMINS, THERA 1 EACH TAB PO SCH (08:50)
[2020-01-05] MEDS: FLUTICASONE 50MCG/SPRAY NASAL 16GM EA NOSTRIL SCH (08:50)
[2020-01-05] MEDS: ENOXAPARIN 40 MG/0.4 ML SYRINGE SQ SCH ×2 (08:50→19:53)
[2020-01-05] MEDS: FAMOTIDINE 20 MG TAB PO SCH ×2 (08:50→19:52)
[2020-01-05] MEDS: AZITHROMYCIN 500 MG TAB PO SCH (08:50)
[2020-01-05] MEDS: ZINC SULFATE 220 MG CAP PO SCH ×2 (08:50→19:52)
[2020-01-05 09:08] LABS: African American GFR (CKD) 110.2 (60.0-200.0); Albumin 3.6 g/dL (3.80-4.90); Albumin/Globulin Ratio 1.89 (1.60-3.17); Anion Gap 7.4 mmol/L (4.00-12.00); Calcium 8.2 mg/dL (8.7-10.3); Carbon Dioxide 28.6 mmol/L (21.6-31.8); Globulin 1.9 g/dL (1.6-3.3); Non-African American GFR(CKD) 95.1 (60.0-200.0); Total Bilirubin 0.6 mg/dL (0.3-1.2); Total Protein 5.5 g/dL (6.2-8.2)
[2020-01-05] MEDS: ALBUTEROL HFA INHALER INHALATION SCH ×4 (09:47→20:17)
[2020-01-05] MEDS: SYMBICORT 160-4.5 MCG INHALER INHALATION SCH ×2 (09:47→20:17)
[2020-01-05] MEDS ORDERED: REMDESIVIR (EUA) 200 MG in SODIUM CHLORIDE 0.9% 250 ML IVPB ONE (12:00)
--- NOTE | 2020-01-05 16:37 | P.PN ---
Subjective Progress Note Date: 01/05/20 Principal diagnosis: Covid 19 related pneumonitis This is a very pleasant 39-year-old gentleman who follows with Dr. Smith as his primary care provider. He has a history of asthma treated with Advair, Singulair and albuterol in the outpatient setting. Approximately 1 week ago he developed fever, chills, diarrhea, worsening shortness of breath cough and congestion. He did test positive for CoVID 19 and was treating his symptoms at home. Yesterday he had worsening fatigue and fever and presented to [facility] and subsequently transferred here by EMS for further evaluation and care. He feels he may have been exposed at work where coworkers have been positive. He works at the [employer]. Chest x-ray reveals left mid to lower lung acute infiltrates and stent right midlung infiltrate. He is seen today in consultation on the regular medical floor. He is currently sitting up in bed. Awake and alert in no acute distress. He is maintaining O2 saturation in the mid 90s on 2 L/m per nasal cannula. T-max 101.9. Currently 99.4. White count 7.7. Hemoglobin 15.4. RDW 12.4. Platelets 133. Sodium 135. Potassium 3.8. Creatinine 1.04. Inflammatory markers added today revealed fibrinogen 573. LDH 847. Creatinine kinase 318. C-reactive protein 69.2. D- dimer 0.25. He's been initiated on azithromycin, Pepcid, Lovenox 40 mg daily, prednisone. Continue on Symbicort, albuterol, Singulair. The patient is seen today 01/04/2020 in follow-up on the regular medical floor. He is currently sitting up in bed. Awake and alert in no acute distress. He is comfortable at rest however went up doing any minimal activity he gets signifi cant dyspnea on exertion. He is now on 3 L nasal cannula and maintaining O2 saturation in the low 90s. Computed tomography scan of the chest without contrast from yesterday revealed patchy bilateral airspace pneumonia. Mild patchy pleural thickening and atelectasis posterior lung bases. Mild fatty infiltration of the liver. White count 9.5. Hemoglobin 13.5. D-dimer 0.22. Sodium 137. Potassium 4.1. Creatinine 1.0. LDH 338. C-reactive protein 7.4. Pro-calcitonin 0.16. He remains on Lovenox, Pepcid, prednisone, zinc. Antibiotics in the form of azithromycin. Symbicort and bronchodilators. On 01/05/2020 patient seen in follow-up on a general medical surgical floor. He is awake and alert, in no acute distress, patient is very short of breath with any exertion, occasional cough, no chest pain, he is on 3-4 L of supplemental oxygen, his pulse ox of 93%, he has been having intermittent fevers, with T-max of 101.5F in last 24 hours. Today's chest x-ray shows findings compatible with atypical pneumonia, with possibility of slight improvement from recent comparison. Patient was started on his first dose of Remdesivir. He is on Lovenox 40 mg subcu twice daily, azithromycin and Rocephin, nebulized bronchodilators, oral prednisone at 30 mg daily, and zinc supplement. Today's labs have been reviewed white count is 12.4, hemoglobin is 13.9, d-dimer is 0.22, electric with renal profile were within normal limits, LDH is 349, CRP is 10, pro-calcitonin was 0.16 Objective - Vital Signs Vital signs: Vital Signs Temp 98.2 F 01/05/20 15:00 Pulse 83 01/05/20 15:00 Resp 20 01/05/20 15:00 BP 121/73 01/05/20 15:00 Pulse Ox 93 L 01/05/20 15:00 Intake & Output 01/04/20 01/05/20 01/05/20 18:59 06:59 18:59 Other: Voiding Method Toilet Toilet # Voids 3 2 3 - Exam GENERAL EXAM: Alert, very pleasant, 39-year-old white male, 3 L of oxygen and pulse ox of 93%, resting in bed, awake and alert, answering questions appropriately, short of breath with any exertion, comfortable in no apparent distress. HEAD: Normocephalic/atraumatic. EYES: Normal reaction of pupils, equal size. Conjunctiva pink, sclera white. NOSE: Clear with pink turbinates. THROAT: No erythema or exudates. NECK: No masses, no JVD, no thyroid enlargement, no adenopathy. CHEST: No chest wall deformity. Symmetrical expansion. LUNGS: Equal air entry with no crackles, wheeze, rhonchi or dullness. CVS: Regular rate and rhythm, normal S1 and S2, no gallops, no murmurs, no rubs ABDOMEN: Soft, nontender. No hepatosplenomegaly, normal bowel sounds, no guarding or rigidity. EXTREMITIES: No clubbing, no edema, no cyanosis, 2+ pulses and upper and lower extremities. MUSCULOSKELETAL: Muscle strength and tone normal. SPINE: No scoliosis or deformity SKIN: No rashes CENTRAL NERVOUS SYSTEM: Alert and oriented -3. No focal deficits, tone is normal in all 4 extremities. PSYCHIATRIC: Alert and oriented -3. Appropriate affect. Intact judgment and insight. - Labs CBC & Chem 7: 01/05/20 06:18 01/05/20 06:18 Labs: Abnormal Lab Results - Last 24 Hours (Table) 01/05/20 01/05/20 Range/Units 06:18 06:18 WBC 12.4 H (3.8-10.6) k/uL Neutrophils # 10.3 H (1.3-7.7) k/uL Calcium 8.2 L (8.7-10.3) mg/dL Lactate Dehydrogenase 349 H (120-246) U/L C-Reactive Protein 10.0 H (0.0-0.8) mg/dL Total Protein 5.5 L (6.2-8.2) g/dL Albumin 3.60 L (3.80-4.90) g/dL Assessment and Plan Plan: 1 Acute CoVID 19 pneumonitis 2 Acute hypoxic respiratory failure secondary to above 3 Acute exacerbation of moderate persistent chronic bronchial asthma 4 Elevated inflammatory markers secondary to above Plan: Patient has been started on his first dose of Remdesivir, continue oral prednisone, continue azithromycin and Rocephin, tinea nebulized inhalers including Symbicort and albuterol. Continue Lovenox, Pepcid, and zinc supplement. Chest x-ray still shows mild infiltrate within the right mid and upper lung field with mild peripheral infiltrates the possibility of slight improvement from recent comparison. Continues to be intermittently febrile. Continue monitoring patient's oxygenation requirements and dyspnea. I performed a history & physical examination of the patient and discussed their management with my nurse practitioner, Jessica Meneses. I reviewed the nurse practitioner's note and agree with the documented findings and plan of care. Lung sounds are positive for . The findings and the impression was discussed with the patient. I attest to the documentation by the nurse practitioner. Time with Patient: Less than 30
--- NOTE | 2020-01-05 18:49 | PN ---
PROGRESS NOTE DATE OF SERVICE: 01/05/2020 This 39-year-old gentleman who was followed by Dr. Smith and Muriel Noel in the setting was admitted with acute COVID-19 pneumonia. The patient had bilateral interstitial pneumonia which was worsening. Remdesivir was initiated by Dr. Castillo per protocol. Patient is being closely monitored. The patient is also on Lovenox. Past medical history reviewed. The patient is able to maintain the oxygen saturation with oxygen by nasal cannula. REVIEW OF SYSTEMS: CARDIOVASCULAR SYSTEM: No angina, palpitations. RESPIRATORY SYSTEM: As mentioned earlier. GI: As mentioned earlier. : No dysuria or retention. NERVOUS SYSTEM: No numbness, weakness. CURRENT MEDICATIONS: 1. Ventolin. 2. DuoNeb. 3. Zithromax. 4. Symbicort. 5. Lovenox. 6. Pepcid. 7. Flonase. 8. Singulair. 9. Multivitamins. 10.Zofran. 11.Prednisone. 12.Remdesivir. 13.Orazinc. PHYSICAL EXAMINATION: Patient is alert, oriented x3. Pulse 83, blood pressure 121/70, respiration 20, temperature 98.2, T-max 100.6, pulse ox 93% on 3 L. HEENT: Conjunctivae normal. NECK: No jugular venous distention. CARDIOVASCULAR SYSTEM: S1, S2 muffled. RESPIRATORY SYSTEM: Breath sounds diminished at the bases. A few scattered rhonchi and crackles. ABDOMEN: Soft, non-tender. LEGS: No edema. No swelling. NERVOUS SYSTEM: No focal deficit. LABS: WBC 12.2, hemoglobin 13, sodium 138. LDH is 349. ASSESSMENT: 1. Acute COVID-19 infection with acute bilateral pneumonia, possibly viral pneumonia, with acute hypoxic respiratory failure secondary to COVID-19 as well as sepsis, present on admission. 2. Hyponatremia. 3. Acute bronchial asthma, acute exacerbation, with acute intermittent bronchial asthma. 4. Thrombocytopenia. 5. Elevated LDH and increased creatine kinase. 6. Increased CRP. 7. History of bronchial asthma. 8. History of gastroesophageal reflux disease. 9. Elevated procalcitonin. 10.Continued fever. RECOMMENDATIONS AND DISCUSSION: I recommend to continue current medications, continue with the monitoring, symptomatic treatment. Continue with the remdesivir. I would also recommend a course of IV antibiotics in the form of Rocephin. Sputum culture. Continue with steroids. Monitor blood sugars closely. Continue the Lovenox. Continue with zinc. Otherwise, follow closely with Pulmonary as well as Infectious Disease. Prognosis guarded because of multiple complex medical issues. Further recommendations to follow. MMODL / IJN: [id number] /
[2020-01-05] MEDS: MONTELUKAST 10 MG TAB PO SCH (19:52)
--- NOTE | 2020-01-05 22:50 | PN ---
PROGRESS NOTE DATE OF SERVICE: 01/05/2020 REASON FOR FOLLOWUP: Acute COVID-19 pneumonia. INTERVAL HISTORY: The patient did have a low-grade fever of 100.6 this morning. The patient subsequently is afebrile. The patient is breathing slightly comfortably. The patient denies having any chest pain. Cough has decreased in intensity, mostly dry in nature. No nausea, no vomiting. No abdominal pain or diarrhea. PHYSICAL EXAMINATION: Blood pressure 135/71 with a pulse of 88, temperature 98.2. He is 96% on room air. General description is a middle-aged male up in the bed in no distress. RESPIRATORY SYSTEM: Unlabored breathing with decreased intensity of breath sounds. No wheeze. HEART: S1, S2. Regular rate and rhythm. ABDOMEN: Soft. No tenderness. EXTREMITIES: No edema of the feet. LABS: Hemoglobin 13.9, white count 12.4, BUN of 12, creatinine 1.0. DIAGNOSTIC IMPRESSION AND PLAN: Patient with acute COVID-19 pneumonia. PLAN: The patient has been started on remdesivir; to continue in addition to the dexamethasone, Lovenox, and we will monitor his clinical course closely. Questions and concerns were answered. MMODL / IJN: [id number] /
[2020-01-06 07:22] LABS: Basophils % (A) 0 %; Eosinophils % (A) 0 %; HCT 42.7 % (39.0-53.0); HGB 14.4 gm/dL (13.0-17.5); Lymphocytes # (A) 1.3 k/uL (1.0-4.8); Lymphocytes % (A) 16 %; MCH 29.7 pg (25.0-35.0); MCHC 33.8 g/dL (31.0-37.0); Mean Platelet Volume 6.8; Monocytes # (A) 0.7 k/uL (0-1.0); Monocytes % (A) 8 %; Neutrophils # (A) 5.9 k/uL (1.3-7.7); Neutrophils % (A) 73 %; Platelet Count 345 k/uL (150-450); RBC 4.85 m/uL (4.30-5.90); RDW 12.5 % (11.5-15.5)
[2020-01-06] MEDS: SYMBICORT 160-4.5 MCG INHALER INHALATION SCH ×2 (08:56→20:17)
[2020-01-06] MEDS: ALBUTEROL HFA INHALER INHALATION SCH ×4 (08:56→20:17)
[2020-01-06] MEDS: FAMOTIDINE 20 MG TAB PO SCH ×2 (09:20→20:22)
[2020-01-06] MEDS: ENOXAPARIN 40 MG/0.4 ML SYRINGE SQ SCH ×2 (09:20→20:22)
[2020-01-06] MEDS: ZINC SULFATE 220 MG CAP PO SCH ×2 (09:21→20:22)
[2020-01-06] MEDS: predniSONE 10 MG TAB PO SCH (09:21)
[2020-01-06] MEDS: AZITHROMYCIN 500 MG TAB PO SCH (09:21)
[2020-01-06 13:00] LABS: African American GFR (CKD) 131.3 (60.0-200.0); Albumin 3.7 g/dL (3.80-4.90); Albumin/Globulin Ratio 2.18 (1.60-3.17); Anion Gap 9.6 mmol/L (4.00-12.00); BUN/Creat Ratio 16.25 Ratio (12.00-20.00); Calcium 8.5 mg/dL (8.7-10.3); Carbon Dioxide 26.4 mmol/L (21.6-31.8); Globulin 1.7 g/dL (1.6-3.3); Non-African American GFR(CKD) 113.3 (60.0-200.0); Total Bilirubin 0.5 mg/dL (0.2-1.2); Total Protein 5.4 g/dL (6.2-8.2)
[2020-01-06 13:06] LABS: C Reactive Protein 8.6 mg/dL (0.0-0.8)
[2020-01-06] MEDS: FLUTICASONE 50MCG/SPRAY NASAL 16GM EA NOSTRIL SCH (13:16)
[2020-01-06] MEDS: MULTIVITAMINS, THERA 1 EACH TAB PO SCH (13:17)
[2020-01-06] MEDS: REMDESIVIR (EUA) 100 MG in SODIUM CHLORIDE 0.9% 250 ML IVPB SCH (13:17)
--- NOTE | 2020-01-06 15:17 | P.PN ---
Subjective Progress Note Date: 01/06/20 Principal diagnosis: Covid 19 related pneumonitis This is a very pleasant 39-year-old gentleman who follows with Dr. Smith as his primary care provider. He has a history of asthma treated with Advair, Singulair and albuterol in the outpatient setting. Approximately 1 week ago he developed fever, chills, diarrhea, worsening shortness of breath cough and congestion. He did test positive for CoVID 19 and was treating his symptoms at home. Yesterday he had worsening fatigue and fever and presented to [facility] and subsequently transferred here by EMS for further evaluation and care. He feels he may have been exposed at work where coworkers have been positive. He works at the [email or web address]. Chest x-ray reveals left mid to lower lung acute infiltrates and stent right midlung infiltrate. He is seen today in consultation on the regular medical floor. He is currently sitting up in bed. Awake and alert in no acute distress. He is maintaining O2 saturation in the mid 90s on 2 L/m per nasal cannula. T-max 101.9. Currently 99.4. White count 7.7. Hemoglobin 15.4. RDW 12.4. Platelets 133. Sodium 135. Potassium 3.8. Creatinine 1.04. Inflammatory markers added today revealed fibrinogen 573. LDH 847. Creatinine kinase 318. C-reactive protein 69.2. D- dimer 0.25. He's been initiated on azithromycin, Pepcid, Lovenox 40 mg daily, prednisone. Continue on Symbicort, albuterol, Singulair. The patient is seen today 01/04/2020 in follow-up on the regular medical floor. He is currently sitting up in bed. Awake and alert in no acute distress. He is comfortable at rest however went up doing any minimal activity he gets signifi cant dyspnea on exertion. He is now on 3 L nasal cannula and maintaining O2 saturation in the low 90s. Computed tomography scan of the chest without contrast from yesterday revealed patchy bilateral airspace pneumonia. Mild patchy pleural thickening and atelectasis posterior lung bases. Mild fatty infiltration of the liver. White count 9.5. Hemoglobin 13.5. D-dimer 0.22. Sodium 137. Potassium 4.1. Creatinine 1.0. LDH 338. C-reactive protein 7.4. Pro-calcitonin 0.16. He remains on Lovenox, Pepcid, prednisone, zinc. Antibiotics in the form of azithromycin. Symbicort and bronchodilators. On 01/05/2020 patient seen in follow-up on a general medical surgical floor. He is awake and alert, in no acute distress, patient is very short of breath with any exertion, occasional cough, no chest pain, he is on 3-4 L of supplemental oxygen, his pulse ox of 93%, he has been having intermittent fevers, with T-max of 101.5F in last 24 hours. Today's chest x-ray shows findings compatible with atypical pneumonia, with possibility of slight improvement from recent comparison. Patient was started on his first dose of Remdesivir. He is on Lovenox 40 mg subcu twice daily, azithromycin and Rocephin, nebulized bronchodilators, oral prednisone at 30 mg daily, and zinc supplement. Today's labs have been reviewed white count is 12.4, hemoglobin is 13.9, d-dimer is 0.22, electric with renal profile were within normal limits, LDH is 349, CRP is 10, pro-calcitonin was 0.16 On 01/06/2020 patient seen in follow-up on general medical surgical floor, he is resting comfortably in bed still has exertional dyspnea, still requiring supplemental oxygen, currently at 3 L, with pulse ox of 95%, his been afebrile in the last 24 hours, hemodynamically patient is stable, as no cough with no s ignificant phlegm production. No complaints of chest pain. Cough has improved, no nausea vomiting or diarrhea, no abdominal pain. Patient has been started on Remdesivir, he received his first dose yesterday, he is due for his second dose today. ID service is following, patient is also on Rocephin and azithromycin. Today's lab 7 reviewed, CBC is within normal limits, electrolytes and renal pro file are unremarkable, LDH has slightly trended up, up to 395 from 349 9 yesterday's labs, CRP is 8.6, on the decline, pro-calcitonin was 0.16, d-dimer was not elevated at 0.22, patient is on Lovenox 40 mg twice daily, patient is on oral steroids prednisone 30 mg daily, and inhalers including Symbicort and rescue inhaler. Objective - Vital Signs Vital signs: Vital Signs Temp 97.6 F 01/06/20 14:59 Pulse 71 01/06/20 14:59 Resp 20 01/06/20 14:59 BP 127/79 01/06/20 14:59 Pulse Ox 95 01/06/20 14:59 Intake & Output 01/05/20 01/06/20 01/06/20 18:59 06:59 18:59 Other: Voiding Method Toilet # Voids 3 2 2 - Exam GENERAL EXAM: Alert, very pleasant, 39-year-old white male, 3 L of oxygen and pulse ox of 95%, resting in bed, awake and alert, answering questions appropriately, short of breath with any exertion, comfortable in no apparent distress. HEAD: Normocephalic/atraumatic. EYES: Normal reaction of pupils, equal size. Conjunctiva pink, sclera white. NOSE: Clear with pink turbinates. THROAT: No erythema or exudates. NECK: No masses, no JVD, no thyroid enlargement, no adenopathy. CHEST: No chest wall deformity. Symmetrical expansion. LUNGS: Equal air entry with no crackles, wheeze, rhonchi or dullness. CVS: Regular rate and rhythm, normal S1 and S2, no gallops, no murmurs, no rubs ABDOMEN: Soft, nontender. No hepatosplenomegaly, normal bowel sounds, no guarding or rigidity. EXTREMITIES: No clubbing, no edema, no cyanosis, 2+ pulses and upper and lower extremities. MUSCULOSKELETAL: Muscle strength and tone normal. SPINE: No scoliosis or deformity SKIN: No rashes CENTRAL NERVOUS SYSTEM: Alert and oriented -3. No focal deficits, tone is normal in all 4 extremities. PSYCHIATRIC: Alert and oriented -3. Appropriate affect. Intact judgment and insight. - Labs CBC & Chem 7: 01/06/20 06:56 01/06/20 06:56 Labs: Abnormal Lab Results - Last 24 Hours (Table) 01/06/20 Range/Units 06:56 Calcium 8.5 L (8.7-10.3) mg/dL Lactate Dehydrogenase 395 H (120-246) U/L C-Reactive Protein 8.6 H (0.0-0.8) mg/dL Total Protein 5.4 L (6.2-8.2) g/dL Albumin 3.70 L (3.80-4.90) g/dL Assessment and Plan Plan: 1 Acute CoVID 19 pneumonitis 2 Acute hypoxic respiratory failure secondary to above 3 Acute exacerbation of moderate persistent chronic bronchial asthma 4 Elevated inflammatory markers secondary to above Plan: Continue current medical treatment, continue oral steroids, antibiotics, patient will recieve second dose of Remdesivir, fever pattern has improved cough has subsided, no nausea vomiting diarrhea, no worsening dyspnea. We'll continue to follow, follow inflammatory markers, monitor febrile pattern, dyspnea, and O2 demand I performed a history & physical examination of the patient and discussed their management with my nurse practitioner, Jessica Meneses. I reviewed the nurse practitioner's note and agree with the documented findings and plan of care. Lung sounds are positive for . The findings and the impression was discussed with the patient. I attest to the documentation by the nurse practitioner. Time with Patient: Less than 30
[2020-01-06] MEDS: MONTELUKAST 10 MG TAB PO SCH (20:22)
--- NOTE | 2020-01-06 21:08 | PN ---
PROGRESS NOTE DATE OF SERVICE: 01/06/2020 This 39-year-old gentleman admitted with Covid pneumonia is being closely monitored. Patient has empiric antibiotics. The patient is hypoxic and patient is on supplement oxygen. Pulmonology and Infectious Disease following the patient closely. The patient was also receiving Remdesivir at this time. There is no history of fever, rigors, chills. The patient is short of breath on even mild exertion. PHYSICAL EXAMINATION: Alert and oriented times three. Pulse 71 blood pressure 127/79, respiration 20, temperature 97.2, pulse ox 94% on 3 L. HEENT is conjunctivae normal. NECK: No JVD. CARDIOVASCULAR: S1, S2 muffled. RESPIRATION: Breath sounds diminished in the bases. A few scattered rhonchi. ABDOMEN: Soft. NERVOUS SYSTEM: No focal deficits. LABS: At this time shows WBC 8, hemoglobin is 14.4. Otherwise, LDH is 395 and C-reactive protein is 8.6, and albumin is 3.70. Procalcitonin is elevated. ASSESSMENT: 1. Acute Covid-19 infection with acute bilateral pneumonia possibly viral pneumonia with acute hypoxic respiratory failure secondary to Covid-19 as well as sepsis present on admission. 2. Hypoalbuminemia. 3. Hyponatremia. 4. Acute bronchial asthma, acute exacerbation with chronic intermittent bronchial asthma, baseline. 5. Thrombocytopenia. 6. Elevated LDH and increased creatinine kinase. 7. Increased CRP. 8. History of bronchial asthma. 9. History of gastroesophageal reflux disease. 10.Elevated procalcitonin. 11.Continued fever improved. RECOMMENDATIONS AND DISCUSSION: This 39-year-old gentleman who presented with multiple complex medical issues, we will monitor the patient closely. Continue the bronchodilators, steroids as well as IV antibiotics. Continue with Remdesivir. Follow closely with Pulmonary. Supplemental oxygen. Prognosis guarded. Other cultures are negative at this time. Discussed with the patient who understands and agrees. Further recommendations to follow. MMODL / IJN: [id number] /
--- NOTE | 2020-01-07 00:50 | PN ---
PROGRESS NOTE DATE OF SERVICE: 01/06/2020. REASON FOR FOLLOWUP: Acute COVID-19 pneumonia. INTERVAL HISTORY: Patient is currently afebrile. The patient is breathing comfortably. The patient denies having any chest pain or shortness of breath. Minimal cough. No nausea. No abdominal pain. No diarrhea. PHYSICAL EXAMINATION: Blood pressure 136/80 with a pulse of 74, temperature 98.5. He is 92% on 4 L. General description: The patient is a middle-aged male lying in bed in no distress. Respiratory system: Unlabored breathing, decreased intense breath sounds. No wheeze. Heart S1, S2. Regular rate and rhythm. ABDOMEN: Soft. No tenderness. LABS: Hemoglobin is 14.4, white count 8.0, BUN of 13, creatinine 0.8. DIAGNOSTIC IMPRESSION AND PLAN: Patient with acute COVID-19 pneumonia. Patient clinically responding to the Remdisivir Lovenox and prednisone along with zinc. Monitor clinical course closely. MMODL / IJN: [id number] / MTDD
[2020-01-07] MEDS: ALBUTEROL HFA INHALER INHALATION SCH ×5 (08:17→21:02)
[2020-01-07] MEDS: SYMBICORT 160-4.5 MCG INHALER INHALATION SCH ×3 (08:17→21:02)
[2020-01-07] MEDS: FAMOTIDINE 20 MG TAB PO SCH ×2 (08:46→20:31)
[2020-01-07] MEDS: ZINC SULFATE 220 MG CAP PO SCH ×2 (08:46→20:31)
[2020-01-07] MEDS: AZITHROMYCIN 500 MG TAB PO SCH (08:46)
[2020-01-07] MEDS: MULTIVITAMINS, THERA 1 EACH TAB PO SCH (08:46)
[2020-01-07] MEDS: FLUTICASONE 50MCG/SPRAY NASAL 16GM EA NOSTRIL SCH (08:46)
[2020-01-07] MEDS: ENOXAPARIN 40 MG/0.4 ML SYRINGE SQ SCH ×2 (08:47→20:31)
[2020-01-07] MEDS: predniSONE 10 MG TAB PO SCH (08:47)
--- NOTE | 2020-01-07 11:03 | XR ---
EXAMINATION TYPE: XR chest 1V portable DATE OF EXAM: 01/07/2020 COMPARISON: 01/05/2020 HISTORY: Shortness of breath TECHNIQUE: Single frontal view of the chest is obtained. FINDINGS: Bilateral multifocal areas of infiltrate with small bilateral effusions. No pneumothorax. Limited inspiration. Heart size is normal. IMPRESSION: Stable bilateral multifocal infiltrates.
[2020-01-07] MEDS: REMDESIVIR (EUA) 100 MG in SODIUM CHLORIDE 0.9% 250 ML IVPB SCH (13:06)
--- NOTE | 2020-01-07 15:12 | P.PN ---
Subjective Progress Note Date: 01/07/20 Principal diagnosis: Covid 19 related pneumonitis This is a very pleasant 39-year-old gentleman who follows with Dr. Smith as his primary care provider. He has a history of asthma treated with Advair, Singulair and albuterol in the outpatient setting. Approximately 1 week ago he developed fever, chills, diarrhea, worsening shortness of breath cough and congestion. He did test positive for CoVID 19 and was treating his symptoms at home. Yesterday he had worsening fatigue and fever and presented to [facility] and subsequently transferred here by EMS for further evaluation and care. He feels he may have been exposed at work where coworkers have been positive. He works at the [employer]. Chest x-ray reveals left mid to lower lung acute infiltrates and stent right midlung infiltrate. He is seen today in consultation on the regular medical floor. He is currently sitting up in bed. Awake and alert in no acute distress. He is maintaining O2 saturation in the mid 90s on 2 L/m per nasal cannula. T-max 101.9. Currently 99.4. White count 7.7. Hemoglobin 15.4. RDW 12.4. Platelets 133. Sodium 135. Potassium 3.8. Creatinine 1.04. Inflammatory markers added today revealed fibrinogen 573. LDH 847. Creatinine kinase 318. C-reactive protein 69.2. D- dimer 0.25. He's been initiated on azithromycin, Pepcid, Lovenox 40 mg daily, prednisone. Continue on Symbicort, albuterol, Singulair. The patient is seen today 01/04/2020 in follow-up on the regular medical floor. He is currently sitting up in bed. Awake and alert in no acute distress. He is comfortable at rest however went up doing any minimal activity he gets signifi cant dyspnea on exertion. He is now on 3 L nasal cannula and maintaining O2 saturation in the low 90s. Computed tomography scan of the chest without contrast from yesterday revealed patchy bilateral airspace pneumonia. Mild patchy pleural thickening and atelectasis posterior lung bases. Mild fatty infiltration of the liver. White count 9.5. Hemoglobin 13.5. D-dimer 0.22. Sodium 137. Potassium 4.1. Creatinine 1.0. LDH 338. C-reactive protein 7.4. Pro-calcitonin 0.16. He remains on Lovenox, Pepcid, prednisone, zinc. Antibiotics in the form of azithromycin. Symbicort and bronchodilators. On 01/05/2020 patient seen in follow-up on a general medical surgical floor. He is awake and alert, in no acute distress, patient is very short of breath with any exertion, occasional cough, no chest pain, he is on 3-4 L of supplemental oxygen, his pulse ox of 93%, he has been having intermittent fevers, with T-max of 101.5F in last 24 hours. Today's chest x-ray shows findings compatible with atypical pneumonia, with possibility of slight improvement from recent comparison. Patient was started on his first dose of Remdesivir. He is on Lovenox 40 mg subcu twice daily, azithromycin and Rocephin, nebulized bronchodilators, oral prednisone at 30 mg daily, and zinc supplement. Today's labs have been reviewed white count is 12.4, hemoglobin is 13.9, d-dimer is 0.22, electric with renal profile were within normal limits, LDH is 349, CRP is 10, pro-calcitonin was 0.16 On 01/06/2020 patient seen in follow-up on general medical surgical floor, he is resting comfortably in bed still has exertional dyspnea, still requiring supplemental oxygen, currently at 3 L, with pulse ox of 95%, his been afebrile in the last 24 hours, hemodynamically patient is stable, as no cough with no s ignificant phlegm production. No complaints of chest pain. Cough has improved, no nausea vomiting or diarrhea, no abdominal pain. Patient has been started on Remdesivir, he received his first dose yesterday, he is due for his second dose today. ID service is following, patient is also on Rocephin and azithromycin. Today's lab 7 reviewed, CBC is within normal limits, electrolytes and renal pro file are unremarkable, LDH has slightly trended up, up to 395 from 349 9 yesterday's labs, CRP is 8.6, on the decline, pro-calcitonin was 0.16, d-dimer was not elevated at 0.22, patient is on Lovenox 40 mg twice daily, patient is on oral steroids prednisone 30 mg daily, and inhalers including Symbicort and rescue inhaler. On 01/07/2020 patient seen in follow-up on esophageal medical surgical floor. Patient is awake and alert, resting quietly in bed, on 3 L of oxygen pulse ox is 94%, FiO2 was dropped down to 2 L, and did remain at 92%, no worsening dyspnea, mild cough, no significant phlegm production, follow-up chest x-ray was obtained today, showing stable bilateral multifocal infiltrates. Patient has been afebrile, hemodynamically patient has been stable, lung sounds are clear, no rho nchi or wheezing no crackles. Sputum culture has shown no growth to date. Patient remains on azithromycin, and Rocephin, he is on oral dose prednisone 30 mg daily, he will receive his third dose of Remdesivir, appetite is poor, but no nausea vomiting or diarrhea. Objective - Vital Signs Vital signs: Vital Signs Temp 98.0 F 01/07/20 07:00 Pulse 71 01/07/20 07:00 Resp 20 01/07/20 07:00 BP 123/83 01/07/20 07:00 Pulse Ox 96 01/07/20 07:00 Intake & Output 01/06/20 01/07/20 01/07/20 18:59 06:59 18:59 Intake Total 100 300 Balance 100 300 Weight 99.79 kg Intake: IV 300 Remdesivir (Eua) 100 mg 250 In Sodium Chloride 0.9% 250 ml @ 250 mls/hr IVPB DAILY@1200 [facility] Rx#: [id number] cefTRIAXone 1 gm In 50 Sodium Chloride 0.9% 50 ml @ 100 mls/hr IVPB Q24HR [facility] Rx#:[id number] Oral 100 Other: # Voids 2 2 - Exam GENERAL EXAM: Alert, very pleasant, 39-year-old white male, 3 L of oxygen and pulse ox of 95%, resting in bed, awake and alert, answering questions appro priately, short of breath with any exertion, comfortable in no apparent distress. HEAD: Normocephalic/atraumatic. EYES: Normal reaction of pupils, equal size. Conjunctiva pink, sclera white. NOSE: Clear with pink turbinates. THROAT: No erythema or exudates. NECK: No masses, no JVD, no thyroid enlargement, no adenopathy. CHEST: No chest wall deformity. Symmetrical expansion. LUNGS: Equal air entry with no crackles, wheeze, rhonchi or dullness. CVS: Regular rate and rhythm, normal S1 and S2, no gallops, no murmurs, no rubs ABDOMEN: Soft, nontender. No hepatosplenomegaly, normal bowel sounds, no guarding or rigidity. EXTREMITIES: No clubbing, no edema, no cyanosis, 2+ pulses and upper and lower extremities. MUSCULOSKELETAL: Muscle strength and tone normal. SPINE: No scoliosis or deformity SKIN: No rashes CENTRAL NERVOUS SYSTEM: Alert and oriented -3. No focal deficits, tone is normal in all 4 extremities. PSYCHIATRIC: Alert and oriented -3. Appropriate affect. Intact judgment and insight. - Labs CBC & Chem 7: 01/06/20 06:56 01/06/20 06:56 Labs: Microbiology - Last 24 Hours (Table) 01/06/20 20:25 Gram Stain - Preliminary Sputum Sputum Culture - Preliminary Assessment and Plan Plan: 1 Acute CoVID 19 pneumonitis 2 Acute hypoxic respiratory failure secondary to above 3 Acute exacerbation of moderate persistent chronic bronchial asthma 4 Elevated inflammatory markers secondary to above Plan: Continue current medical treatment, patient will receive third dose of Remdesivir, continue current dose of Lovenox, azithromycin and Rocephin, continue oral steroids, his chest x-ray has been reviewed, inflammatory markers have been reviewed. Continue weaning FiO2, encouraged patient to sit up in the chair, ambulate in the room. Continue to follow I performed a history & physical examination of the patient and discussed their management with my nurse practitioner, Jessica Meneses. I reviewed the nurse practitioner's note and agree with the documented findings and plan of care. Lung sounds are positive for . The findings and the impression was discussed with the patient. I attest to the documentation by the nurse practitioner. Time with Patient: Less than 30
[2020-01-07] MEDS: MONTELUKAST 10 MG TAB PO SCH (20:31)
--- NOTE | 2020-01-07 22:19 | PN ---
PROGRESS NOTE DATE OF SERVICE: 01/07/2020 This 39-year-old gentleman admitted with acute COVID-19 pneumonia with acute hypoxic respiratory failure is also receiving remdesivir. The patient was seen by Infectious Disease, Dr. Castillo, and Pulmonary, Dr. Gore. The patient is being closely monitored at this time. Currently the patient appears to be maintaining oxygenation even though patient is hypoxic. The most recent chest x-ray, which was personally reviewed by me, showed persistent bilateral lesions. No chest pain. No palpitations. No fever. PHYSICAL EXAMINATION: Alert and oriented x3. Pulse is 75, blood pressure 102/54, respiration 20, temperature 98.4, pulse ox 92% on 3 L. HEENT: Conjunctivae normal. NECK: No jugular venous distention. CARDIOVASCULAR SYSTEM: S1, S2 muffled. RESPIRATORY SYSTEM: Breath sounds diminished at the bases. A few scattered rhonchi and crackles. ABDOMEN: Soft, non-tender. NERVOUS SYSTEM: No focal deficit. LABS: WBC 8, hemoglobin 14.4. Other labs are noted. LDH is 395. C-reactive protein is 8.6. ASSESSMENT: 1. Acute COVID-19 infection with acute bilateral pneumonia, possibly viral pneumonia, with acute hypoxic respiratory failure secondary to COVID-19 as well as sepsis, present on admission. 2. Hypoalbuminemia. 3. Hyponatremia. 4. Acute bronchial asthma, acute exacerbation, with chronic intermittent bronchial asthma at baseline. 5. Thrombocytopenia. 6. Elevated LDH with increased creatine kinase. 7. Increased CRP. 8. History of bronchial asthma. 9. History of gastroesophageal reflux disease. 10.Elevated procalcitonin. 11.Continued fever, improved. RECOMMENDATIONS AND DISCUSSION: I recommend to continue current medications, continue with the monitoring, symptomatic treatment. Please note that some of the findings may be noted from shared notes because of the acute COVID-19 infection which is highly contagious. Otherwise, we will continue to monitor. Input from Dr. Gore and Dr. Castillo appreciated. We will continue the remdesivir. Continue the bronchodilators. Continue empiric antibiotics. Guarded prognosis. Further recommendations to follow. MMODL / IJN: [id number] /
--- NOTE | 2020-01-08 02:22 | PN ---
PROGRESS NOTE DATE OF SERVICE: 01/07/2020 REASON FOR FOLLOWUP: Acute COVID-19 pneumonia. INTERVAL HISTORY: The patient is currently afebrile. The patient is breathing more comfortably, still requiring supplemental oxygen. No chest pain, shortness of breath or cough. No nausea, no vomiting. No abdominal pain, no diarrhea. PHYSICAL EXAMINATION: Blood pressure 121/72 with a pulse of 66, temperature 98. He is 95% on 2 L nasal cannula. General description is a middle-aged male up in the chair in no distress. RESPIRATORY SYSTEM: Unlabored breathing with decreased intensity of breath sounds. No wheeze. HEART: S1, S2. Regular rate and rhythm. ABDOMEN: Soft, no tenderness. LABS: No new labs have been obtained today. DIAGNOSTIC IMPRESSION AND PLAN: Patient with acute COVID-19 pneumonia in this patient clinically responding to the Remdesivir. He is on day 3 of the therapy. Chest x-ray revealed stable multifocal infiltrate. Continue with steroids, Lovenox, Zinc and monitor his clinical course closely. MMODL / IJN: [id number] /
[2020-01-08] MEDS: SYMBICORT 160-4.5 MCG INHALER INHALATION SCH ×2 (08:02→20:00)
[2020-01-08] MEDS: ALBUTEROL HFA INHALER INHALATION SCH ×4 (08:02→20:00)
[2020-01-08] MEDS: ENOXAPARIN 40 MG/0.4 ML SYRINGE SQ SCH ×2 (09:13→20:20)
[2020-01-08] MEDS: MULTIVITAMINS, THERA 1 EACH TAB PO SCH (09:14)
[2020-01-08] MEDS: predniSONE 10 MG TAB PO SCH (09:14)
[2020-01-08] MEDS: FAMOTIDINE 20 MG TAB PO SCH ×2 (09:14→20:20)
[2020-01-08] MEDS: FLUTICASONE 50MCG/SPRAY NASAL 16GM EA NOSTRIL SCH (09:22)
[2020-01-08] MEDS: ZINC SULFATE 220 MG CAP PO SCH ×2 (09:22→20:20)
[2020-01-08] MEDS: AZITHROMYCIN 500 MG TAB PO SCH (09:22)
--- NOTE | 2020-01-08 14:40 | P.PN ---
Subjective Progress Note Date: 01/08/20 Principal diagnosis: Covid 19 related pneumonitis This is a very pleasant 39-year-old gentleman who follows with Dr. Smith as his primary care provider. He has a history of asthma treated with Advair, Singulair and albuterol in the outpatient setting. Approximately 1 week ago he developed fever, chills, diarrhea, worsening shortness of breath cough and congestion. He did test positive for CoVID 19 and was treating his symptoms at home. Yesterday he had worsening fatigue and fever and presented to [facility] and subsequently transferred here by EMS for further evaluation and care. He feels he may have been exposed at work where coworkers have been positive. He works at the [employer]. Chest x-ray reveals left mid to lower lung acute infiltrates and stent right midlung infiltrate. He is seen today in consultation on the regular medical floor. He is currently sitting up in bed. Awake and alert in no acute distress. He is maintaining O2 saturation in the mid 90s on 2 L/m per nasal cannula. T-max 101.9. Currently 99.4. White count 7.7. Hemoglobin 15.4. RDW 12.4. Platelets 133. Sodium 135. Potassium 3.8. Creatinine 1.04. Inflammatory markers added today revealed fibrinogen 573. LDH 847. Creatinine kinase 318. C-reactive protein 69.2. D- dimer 0.25. He's been initiated on azithromycin, Pepcid, Lovenox 40 mg daily, prednisone. Continue on Symbicort, albuterol, Singulair. The patient is seen today 01/04/2020 in follow-up on the regular medical floor. He is currently sitting up in bed. Awake and alert in no acute distress. He is comfortable at rest however went up doing any minimal activity he gets signifi cant dyspnea on exertion. He is now on 3 L nasal cannula and maintaining O2 saturation in the low 90s. Computed tomography scan of the chest without contrast from yesterday revealed patchy bilateral airspace pneumonia. Mild patchy pleural thickening and atelectasis posterior lung bases. Mild fatty infiltration of the liver. White count 9.5. Hemoglobin 13.5. D-dimer 0.22. Sodium 137. Potassium 4.1. Creatinine 1.0. LDH 338. C-reactive protein 7.4. Pro-calcitonin 0.16. He remains on Lovenox, Pepcid, prednisone, zinc. Antibiotics in the form of azithromycin. Symbicort and bronchodilators. On 01/05/2020 patient seen in follow-up on a general medical surgical floor. He is awake and alert, in no acute distress, patient is very short of breath with any exertion, occasional cough, no chest pain, he is on 3-4 L of supplemental oxygen, his pulse ox of 93%, he has been having intermittent fevers, with T-max of 101.5F in last 24 hours. Today's chest x-ray shows findings compatible with atypical pneumonia, with possibility of slight improvement from recent comparison. Patient was started on his first dose of Remdesivir. He is on Lovenox 40 mg subcu twice daily, azithromycin and Rocephin, nebulized bronchodilators, oral prednisone at 30 mg daily, and zinc supplement. Today's labs have been reviewed white count is 12.4, hemoglobin is 13.9, d-dimer is 0.22, electric with renal profile were within normal limits, LDH is 349, CRP is 10, pro-calcitonin was 0.16 On 01/06/2020 patient seen in follow-up on general medical surgical floor, he is resting comfortably in bed still has exertional dyspnea, still requiring supplemental oxygen, currently at 3 L, with pulse ox of 95%, his been afebrile in the last 24 hours, hemodynamically patient is stable, as no cough with no s ignificant phlegm production. No complaints of chest pain. Cough has improved, no nausea vomiting or diarrhea, no abdominal pain. Patient has been started on Remdesivir, he received his first dose yesterday, he is due for his second dose today. ID service is following, patient is also on Rocephin and azithromycin. Today's lab 7 reviewed, CBC is within normal limits, electrolytes and renal pro file are unremarkable, LDH has slightly trended up, up to 395 from 349 9 yesterday's labs, CRP is 8.6, on the decline, pro-calcitonin was 0.16, d-dimer was not elevated at 0.22, patient is on Lovenox 40 mg twice daily, patient is on oral steroids prednisone 30 mg daily, and inhalers including Symbicort and rescue inhaler. On 01/07/2020 patient seen in follow-up on medical surgical floor. Patient is awake and alert, resting quietly in bed, on 3 L of oxygen pulse ox is 94%, FiO2 was dropped down to 2 L, and did remain at 92%, no worsening dyspnea, mild cough, no significant phlegm production, follow-up chest x-ray was obtained today, showing stable bilateral multifocal infiltrates. Patient has been afebrile, hemodynamically patient has been stable, lung sounds are clear, no rhonchi or wheezing no crackles. Sputum culture has shown no growth to date. Patient remains on azithromycin, and Rocephin, he is on oral dose prednisone 30 mg daily, he will receive his third dose of Remdesivir, appetite is poor, but no nausea vomiting or diarrhea. On 01/08/2020 patient seen in follow-up on medical surgical floor. Remains on 2 L of oxygen, his pulse ox is 90-94%, patient is afebrile, hemodynamically patient is stable, denies any dyspnea, denies any chest pain, occasional nonproductive cough, the cough has improved, not much of an appetite, but no diarrhea, no nausea or vomiting. Patient is receiving Remdesivir, he is supposed to get his fourth dose today, no new labs today. Patient remains on azithromycin and Rocephin, oral dose prednisone, and nebulized bronchodilators, he is on oral Pepcid, zinc supplement, and Lovenox 40 mg twice daily. No abdominal pain, no diarrhea. Objective - Vital Signs Vital signs: Vital Signs Temp 97.8 F 01/08/20 07:00 Pulse 80 01/08/20 08:00 Resp 20 01/08/20 08:00 BP 129/81 01/08/20 07:00 Pulse Ox 90 L 01/08/20 11:08 Intake & Output 01/07/20 01/08/20 01/08/20 18:59 06:59 18:59 Intake Total 300 300 Balance 300 300 Weight 99.79 kg Intake: IV 300 Remdesivir (Eua) 100 mg 250 In Sodium Chloride 0.9% 250 ml @ 250 mls/hr IVPB DAILY@1200 [facility] Rx#: [id number] cefTRIAXone 1 gm In 50 Sodium Chloride 0.9% 50 ml @ 100 mls/hr IVPB Q24HR [facility] Rx#:[id number] Oral 300 Other: Voiding Method Toilet Toilet # Voids 2 - Exam GENERAL EXAM: Alert, very pleasant, 39-year-old white male, 3 L of oxygen and pulse ox of 95%, resting in bed, awake and alert, answering questions appropriately, short of breath with any exertion, comfortable in no apparent distress. HEAD: Normocephalic/atraumatic. EYES: Normal reaction of pupils, equal size. Conjunctiva pink, sclera white. NOSE: Clear with pink turbinates. THROAT: No erythema or exudates. NECK: No masses, no JVD, no thyroid enlargement, no adenopathy. CHEST: No chest wall deformity. Symmetrical expansion. LUNGS: Equal air entry with no crackles, wheeze, rhonchi or dullness. CVS: Regular rate and rhythm, normal S1 and S2, no gallops, no murmurs, no rubs ABDOMEN: Soft, nontender. No hepatosplenomegaly, normal bowel sounds, no guarding or rigidity. EXTREMITIES: No clubbing, no edema, no cyanosis, 2+ pulses and upper and lower extremities. MUSCULOSKELETAL: Muscle strength and tone normal. SPINE: No scoliosis or deformity SKIN: No rashes CENTRAL NERVOUS SYSTEM: Alert and oriented -3. No focal deficits, tone is normal in all 4 extremities. PSYCHIATRIC: Alert and oriented -3. Appropriate affect. Intact judgment and insight. - Labs CBC & Chem 7: 01/06/20 06:56 01/06/20 06:56 Labs: Microbiology - Last 24 Hours (Table) 01/06/20 20:25 Gram Stain - Preliminary Sputum Sputum Culture - Preliminary Presumptive Staph aureus Assessment and Plan Plan: 1 Acute CoVID 19 pneumonitis 2 Acute hypoxic respiratory failure secondary to above 3 Acute exacerbation of moderate persistent chronic bronchial asthma 4 Elevated inflammatory markers secondary to above Plan: Continue current medical treatment, oral steroids, antibiotics, and Remdesivir, continue DVT prophylaxis, continues to require supplemental oxygen, will obtain follow-up inflammatory markers tomorrow. he will complete his Remdesivir course tomorrow, if remains stable possible discharge home in the next 24 hours. I performed a history & physical examination of the patient and discussed their management with my nurse practitioner, Jessica Meneses. I reviewed the nurse practitioner's note and agree with the documented findings and plan of care. Lung sounds are positive for . The findings and the impression was discussed with the patient. I attest to the documentation by the nurse practitioner. Time with Patient: Less than 30
[2020-01-08] MEDS: REMDESIVIR (EUA) 100 MG in SODIUM CHLORIDE 0.9% 250 ML IVPB SCH (15:01)
[2020-01-08] MEDS: MONTELUKAST 10 MG TAB PO SCH (20:20)
--- NOTE | 2020-01-08 20:45 | PN ---
PROGRESS NOTE DATE OF SERVICE: 01/08/2020 This 39-year-old gentleman admitted with COVID pneumonia is being closely monitored. Patient has some hypoxia. The patient is also receiving remdesivir. The patient is feeling slightly better. No chest pain. No palpitations. No fever. Still short of breath. The pulse ox is still 92% only on 2 L nasal cannula. No chest pain. No palpitations. No fever. PHYSICAL EXAMINATION: Alert and oriented x3. Pulse 81, blood pressure 127/83, respiration 18, temperature 97.2, pulse ox 91% on 2 L. HEENT: Conjunctivae normal. Oral mucosa moist. NECK: No jugular venous distention. No carotid bruit. No lymph node enlargement. CARDIOVASCULAR SYSTEM: S1, S2 muffled. RESPIRATORY SYSTEM: Breath sounds diminished at the bases. A few scattered rhonchi and crackles. ABDOMEN: Soft, non-tender. LEGS: No edema. No swelling. NERVOUS SYSTEM: No focal deficit. LABS: Labs at this time show WBC 8, hemoglobin 14.4. Otherwise, LDH is 395. ASSESSMENT: 1. Acute COVID-19 infection with acute bilateral pneumonia, possibly viral pneumonia, with acute hypoxic respiratory failure secondary to COVID-19 as well as sepsis, present on admission. 2. Hypoalbuminemia. 3. Hyponatremia. 4. Acute bronchial asthma, acute exacerbation, with chronic intermittent bronchial asthma as the baseline. 5. Thrombocytopenia. 6. Elevated LDH and increased creatine kinase. 7. Increased CRP. 8. History of bronchial asthma. 9. History of gastroesophageal reflux disease. 10.Elevated procalcitonin. 11.Continued fever, improved. RECOMMENDATIONS AND DISCUSSION: I recommend to continue current medications, continue with the monitoring, symptomatic treatment. Continue with antibiotics. Continue with bronchodilators. Continue steroids. Continue with remdesivir; today is the last dose of remdesivir. Closely follow with Infectious Disease and Pulmonary. Prognosis guarded. Further recommendations to follow. MMODL / IJN: [id number] /
--- NOTE | 2020-01-09 04:07 | PN ---
PROGRESS NOTE DATE OF SERVICE: 01/08/2020 REASON FOR FOLLOWUP: Acute COVID-19 pneumonia. INTERVAL HISTORY: The patient is currently afebrile. The patient is breathing more comfortably. Denies having any chest pain or shortness of breath. Occasional cough. No nausea, no vomiting. No abdominal pain, no diarrhea. Still requiring supplemental oxygen. PHYSICAL EXAMINATION: Blood pressure 117/81 with a pulse of 64, temperature 97.1. He is 94% on 2 L nasal cannula. General description is a middle-aged male up in the chair in no distress. RESPIRATORY SYSTEM: Unlabored breathing, decreased intense breath sounds. No wheeze. HEART: S1, S2. Regular rate and rhythm. ABDOMEN: Soft, no tenderness. LABS: No new labs have been obtained today. DIAGNOSTIC IMPRESSION AND PLAN: Patient with acute COVID-19 pneumonia. Patient seemed to be clinically responding to the remdesivir, prednisone and Lovenox. Sputum is now showing Staph aureus, possible MSSA is covered with Rocephin. X-rays will be repeated tomorrow . Monitor clinical course closely. MMODL / IJN: [id number] / MTDD
--- NOTE | 2020-01-09 07:02 | XR ---
EXAMINATION TYPE: XR chest 1V portable DATE OF EXAM: 01/09/2020 COMPARISON: 01/07/2020 HISTORY: Chest pain TECHNIQUE: Single frontal view of the chest is obtained. FINDINGS: Bilateral peripheral infiltrates persist without significant change. The cardiac silhouette size is within normal limits. The osseous structures are intact. IMPRESSION: 1. Bilateral peripheral infiltrates persist without significant change.
[2020-01-09 08:13] LABS: HGB 15.3 gm/dL (13.0-17.5); MCH 29.3 pg (25.0-35.0); MCHC 33.9 g/dL (31.0-37.0); MCV 86.5 fL (80.0-100.0); Mean Platelet Volume 6.5; Platelet Count 475 k/uL (150-450); RDW 12.4 % (11.5-15.5); WBC 7.1 k/uL (3.8-10.6)
[2020-01-09 08:37] LABS: Band Neutrophils % 2 %; Lymphocytes # (M) 2.13 k/uL (1.0-4.8); Neutrophils % (M) 61 %; Nucleated Red Blood Cells 0 /100 WBC (0-0); Total Cells Counted 100
[2020-01-09] MEDS: FAMOTIDINE 20 MG TAB PO SCH ×2 (08:40→20:10)
[2020-01-09] MEDS: FLUTICASONE 50MCG/SPRAY NASAL 16GM EA NOSTRIL SCH (08:40)
[2020-01-09] MEDS: MULTIVITAMINS, THERA 1 EACH TAB PO SCH (08:40)
[2020-01-09] MEDS: ZINC SULFATE 220 MG CAP PO SCH ×2 (08:41→20:10)
[2020-01-09] MEDS: ENOXAPARIN 40 MG/0.4 ML SYRINGE SQ SCH ×2 (08:42→20:10)
[2020-01-09] MEDS: AZITHROMYCIN 500 MG TAB PO SCH (08:42)
[2020-01-09] MEDS: SYMBICORT 160-4.5 MCG INHALER INHALATION SCH ×2 (09:52→20:28)
[2020-01-09] MEDS: ALBUTEROL HFA INHALER INHALATION SCH ×4 (09:52→20:28)
[2020-01-09] MEDS: predniSONE 10 MG TAB PO SCH (10:37)
[2020-01-09] MEDS: REMDESIVIR (EUA) 100 MG in SODIUM CHLORIDE 0.9% 250 ML IVPB SCH (12:55)
--- NOTE | 2020-01-09 13:55 | P.PN ---
Subjective Progress Note Date: 01/09/20 Principal diagnosis: Covid 19 related pneumonitis This is a very pleasant 39-year-old gentleman who follows with Dr. Smith as his primary care provider. He has a history of asthma treated with Advair, Singulair and albuterol in the outpatient setting. Approximately 1 week ago he developed fever, chills, diarrhea, worsening shortness of breath cough and congestion. He did test positive for CoVID 19 and was treating his symptoms at home. Yesterday he had worsening fatigue and fever and presented to [facility] and subsequently transferred here by EMS for further evaluation and care. He feels he may have been exposed at work where coworkers have been positive. He works at the [employer]. Chest x-ray reveals left mid to lower lung acute infiltrates and stent right midlung infiltrate. He is seen today in consultation on the regular medical floor. He is currently sitting up in bed. Awake and alert in no acute distress. He is maintaining O2 saturation in the mid 90s on 2 L/m per nasal cannula. T-max 101.9. Currently 99.4. White count 7.7. Hemoglobin 15.4. RDW 12.4. Platelets 133. Sodium 135. Potassium 3.8. Creatinine 1.04. Inflammatory markers added today revealed fibrinogen 573. LDH 847. Creatinine kinase 318. C-reactive protein 69.2. D- dimer 0.25. He's been initiated on azithromycin, Pepcid, Lovenox 40 mg daily, prednisone. Continue on Symbicort, albuterol, Singulair. The patient is seen today 01/04/2020 in follow-up on the regular medical floor. He is currently sitting up in bed. Awake and alert in no acute distress. He is comfortable at rest however went up doing any minimal activity he gets signifi cant dyspnea on exertion. He is now on 3 L nasal cannula and maintaining O2 saturation in the low 90s. Computed tomography scan of the chest without contrast from yesterday revealed patchy bilateral airspace pneumonia. Mild patchy pleural thickening and atelectasis posterior lung bases. Mild fatty infiltration of the liver. White count 9.5. Hemoglobin 13.5. D-dimer 0.22. Sodium 137. Potassium 4.1. Creatinine 1.0. LDH 338. C-reactive protein 7.4. Pro-calcitonin 0.16. He remains on Lovenox, Pepcid, prednisone, zinc. Antibiotics in the form of azithromycin. Symbicort and bronchodilators. On 01/05/2020 patient seen in follow-up on a general medical surgical floor. He is awake and alert, in no acute distress, patient is very short of breath with any exertion, occasional cough, no chest pain, he is on 3-4 L of supplemental oxygen, his pulse ox of 93%, he has been having intermittent fevers, with T-max of 101.5F in last 24 hours. Today's chest x-ray shows findings compatible with atypical pneumonia, with possibility of slight improvement from recent comparison. Patient was started on his first dose of Remdesivir. He is on Lovenox 40 mg subcu twice daily, azithromycin and Rocephin, nebulized bronchodilators, oral prednisone at 30 mg daily, and zinc supplement. Today's labs have been reviewed white count is 12.4, hemoglobin is 13.9, d-dimer is 0.22, electric with renal profile were within normal limits, LDH is 349, CRP is 10, pro-calcitonin was 0.16 On 01/06/2020 patient seen in follow-up on general medical surgical floor, he is resting comfortably in bed still has exertional dyspnea, still requiring supplemental oxygen, currently at 3 L, with pulse ox of 95%, his been afebrile in the last 24 hours, hemodynamically patient is stable, as no cough with no s ignificant phlegm production. No complaints of chest pain. Cough has improved, no nausea vomiting or diarrhea, no abdominal pain. Patient has been started on Remdesivir, he received his first dose yesterday, he is due for his second dose today. ID service is following, patient is also on Rocephin and azithromycin. Today's lab 7 reviewed, CBC is within normal limits, electrolytes and renal pro file are unremarkable, LDH has slightly trended up, up to 395 from 349 9 yesterday's labs, CRP is 8.6, on the decline, pro-calcitonin was 0.16, d-dimer was not elevated at 0.22, patient is on Lovenox 40 mg twice daily, patient is on oral steroids prednisone 30 mg daily, and inhalers including Symbicort and rescue inhaler. On 01/07/2020 patient seen in follow-up on medical surgical floor. Patient is awake and alert, resting quietly in bed, on 3 L of oxygen pulse ox is 94%, FiO2 was dropped down to 2 L, and did remain at 92%, no worsening dyspnea, mild cough, no significant phlegm production, follow-up chest x-ray was obtained today, showing stable bilateral multifocal infiltrates. Patient has been afebrile, hemodynamically patient has been stable, lung sounds are clear, no rhonchi or wheezing no crackles. Sputum culture has shown no growth to date. Patient remains on azithromycin, and Rocephin, he is on oral dose prednisone 30 mg daily, he will receive his third dose of Remdesivir, appetite is poor, but no nausea vomiting or diarrhea. On 01/08/2020 patient seen in follow-up on medical surgical floor. Remains on 2 L of oxygen, his pulse ox is 90-94%, patient is afebrile, hemodynamically patient is stable, denies any dyspnea, denies any chest pain, occasional nonproductive cough, the cough has improved, not much of an appetite, but no diarrhea, no nausea or vomiting. Patient is receiving Remdesivir, he is supposed to get his fourth dose today, no new labs today. Patient remains on azithromycin and Rocephin, oral dose prednisone, and nebulized bronchodilators, he is on oral Pepcid, zinc supplement, and Lovenox 40 mg twice daily. No abdominal pain, no diarrhea. On 01/09/2020 patient seen in follow-up for general medical surgical floor, he states he is feeling better, he is receiving his final dose of Remdesivir to complete his 5 day course of Remdesivir. His had no fevers or chills, he is on 2 L of oxygen with pulse ox of 93-95%, breathing seems to be comfortable, no compressive chest pain, cough has significantly improved, there is no phlegm production, no tachycardia, no fever or chills, no diarrhea, no nausea or vomiting, today's labs have been reviewed, showing white blood cell count 7.1, hemoglobin of 15.3, his pro-calcitonin was negative at 0.08, his sputum culture revealed evidence of MSSA, patient was treated with a combination of azithromyci n and Rocephin. He is on prednisone at 30 mg, and nebulized bronchodilators, he is on Lovenox 40 mg twice daily, and Pepcid twice daily. Breathing has improved, no wheezing, no rhonchi, just diminished breath sounds at the bases patient has been tolerating ablation about the room, no distress Objective - Vital Signs Vital signs: Vital Signs Temp 97.6 F 01/09/20 07:00 Pulse 64 01/09/20 08:00 Resp 18 01/09/20 08:00 BP 129/78 01/09/20 07:00 Pulse Ox 93 L 01/09/20 07:00 Intake & Output 01/08/20 01/09/20 01/09/20 18:59 06:59 18:59 Intake Total 200 Balance 200 Intake: Oral 200 Other: Voiding Method Toilet Toilet Toilet # Voids 2 1 - Exam GENERAL EXAM: Alert, very pleasant, 39-year-old white male, 3 L of oxygen and pulse ox of 95%, resting in bed, awake and alert, answering questions appropriately, short of breath with any exertion, comfortable in no apparent distress. HEAD: Normocephalic/atraumatic. EYES: Normal reaction of pupils, equal size. Conjunctiva pink, sclera white. NOSE: Clear with pink turbinates. THROAT: No erythema or exudates. NECK: No masses, no JVD, no thyroid enlargement, no adenopathy. CHEST: No chest wall deformity. Symmetrical expansion. LUNGS: Equal air entry with no crackles, wheeze, rhonchi or dullness. CVS: Regular rate and rhythm, normal S1 and S2, no gallops, no murmurs, no rubs ABDOMEN: Soft, nontender. No hepatosplenomegaly, normal bowel sounds, no guarding or rigidity. EXTREMITIES: No clubbing, no edema, no cyanosis, 2+ pulses and upper and lower extremities. MUSCULOSKELETAL: Muscle strength and tone normal. SPINE: No scoliosis or deformity SKIN: No rashes CENTRAL NERVOUS SYSTEM: Alert and oriented -3. No focal deficits, tone is normal in all 4 extremities. PSYCHIATRIC: Alert and oriented -3. Appropriate affect. Intact judgment and insight. - Labs CBC & Chem 7: 01/09/20 07:22 01/06/20 06:56 Labs: Abnormal Lab Results - Last 24 Hours (Table) 01/09/20 Range/Units 07:22 Plt Count 475 H (150-450) k/uL Microbiology - Last 24 Hours (Table) 01/06/20 20:25 Gram Stain - Final Sputum Sputum Culture - Final Staphylococcus aureus Assessment and Plan Plan: 1 Acute CoVID 19 pneumonitis 2 Acute hypoxic respiratory failure secondary to above 3 Acute exacerbation of moderate persistent chronic bronchial asthma 4 Elevated inflammatory markers secondary to above 5 MSSA in the sputum, patient was treated with a combination of azithromycin and Rocephin Plan: Patient is doing well, no acute distress, patient will complete his 5 day course of Remdesivir, he continues on azithromycin and Rocephin, vital signs have been stable, he has had no fever or chills, he may need home oxygen to go home on, no nausea vomiting diarrhea, no significant pulmonary symptoms, he can possibly be considered for discharge home in the next 24 hours. I performed a history & physical examination of the patient and discussed their management with my nurse practitioner, Jessica eMneses. I reviewed the nurse practitioner's note and agree with the documented findings and plan of care. Lung sounds are positive for . The findings and the impression was discussed with the patient. I attest to the documentation by the nurse practitioner. Time with Patient: Less than 30
--- NOTE | 2020-01-09 16:53 | PN ---
PROGRESS NOTE DATE OF SERVICE: 01/09/2020 This 33-year-old gentleman who was admitted with acute COVID-19 infection is being closely monitored. The patient also had MSSA pneumonia. The patient is on Remdesivir. The most recent chest x-ray which was personally reviewed by me showed some improvement or at least stability. No chest pain. No palpitations. No fever. PHYSICAL EXAMINATION: Alert and oriented times three. Pulse 80. Blood pressure 124/67, respiration 18, temperature 97.8, pulse ox 93% on 1 L. HEENT: Conjunctivae normal. NECK: No JVD. CARDIOVASCULAR: S1, S2. RESPIRATORY SYSTEM: Breath sounds diminished at the bases. A few scattered rhonchi and crackles. ABDOMEN: Soft. Nontender. LEGS are no edema. No swelling. NERVOUS SYSTEM: No focal deficits. Some of the examination findings maybe LABS: Noted. ASSESSMENT: 1. Acute Covid-19 infection with acute bilateral pneumonia possibly viral pneumonia with acute hypoxic respiratory failure secondary to Covid-19 as well as sepsis, present on admission. 2. Hypoalbuminemia. 3. Hyponatremia. 4. Acute on chronic bronchial asthma, acute exacerbation with chronic intermittent bronchial asthma as baseline. 5. Thrombocytopenia. 6. Elevated LDH and increased creatinine kinase. 7. Increased CRP. 8. History of bronchial asthma. 9. History of gastroesophageal reflux disease. 10.Elevated procalcitonin. 11.Continued fever, improved. RECOMMENDATIONS AND DISCUSSION: Recommend to continue current medications, monitoring and symptomatic treatment at this time and continue antibiotics. Continue with the antivirals. Guarded prognosis. Further recommendations to follow. MMODL / IJN: [id number] / MARGARITO
[2020-01-09 17:36] LABS: African American GFR (CKD) 125.1 (60.0-200.0); Anion Gap 9.1 mmol/L (4.00-12.00); BUN/Creat Ratio 16.67 Ratio (12.00-20.00); C Reactive Protein 1.1 mg/dL (0.0-0.8); Calcium 8.8 mg/dL (8.7-10.3); Carbon Dioxide 26.9 mmol/L (21.6-31.8)
[2020-01-09] MEDS: MONTELUKAST 10 MG TAB PO SCH (20:10)
--- NOTE | 2020-01-09 21:05 | PN ---
PROGRESS NOTE DATE OF SERVICE: 01/09/2020 REASON FOR FOLLOWUP: Acute COVID-19 pneumonia. INTERVAL HISTORY: Patient is currently afebrile. The patient has been breathing more comfortably. Denies having any chest pain. Minimal cough. No nausea, no vomiting. No abdominal pain or diarrhea. PHYSICAL EXAMINATION: Blood pressure is 133/77 with a pulse of 76, temperature 97.4. He is 95% on 1 L nasal cannula. General description: The patient is a middle-aged male up in the bed in no distress. Respiratory system: Unlabored breathing, decreased breath sounds at the bases. No wheeze. Heart S1, S2. Regular rate and rhythm. Abdomen soft, no tenderness. LABS: Hemoglobin 16.8, white count 7.1. BUN of 15, creatinine 0.9. CRP is down to 1.1 and LDH is 284. DIAGNOSTIC IMPRESSION/PLAN: Patient with acute COVID-19 pneumonia in this patient who has completed a 5-day course of Remdesivir. He continues to be on the prednisone, Zithromax and Lovenox, to be weaned off the oxygen and continue but hopefully able to go home in the next day or two. All his questions and concerns were answered. MMODL / IJN: [id number] / MARGARITO
[2020-01-10 07:16] LABS: Basophils # (A) 0.1 k/uL (0-0.2); Basophils % (A) 1 %; Eosinophils # (A) 0.1 k/uL (0-0.7); Eosinophils % (A) 1 %; HCT 43.6 % (39.0-53.0); HGB 14.8 gm/dL (13.0-17.5); Lymphocytes # (A) 1.5 k/uL (1.0-4.8); Lymphocytes % (A) 20 %; MCH 29.3 pg (25.0-35.0); MCHC 33.9 g/dL (31.0-37.0); MCV 86.3 fL (80.0-100.0); Mean Platelet Volume 6.5; Monocytes # (A) 0.6 k/uL (0-1.0); Monocytes % (A) 7 %; Neutrophils # (A) 5.2 k/uL (1.3-7.7); Neutrophils % (A) 69 %; Platelet Count 468 k/uL (150-450); RBC 5.05 m/uL (4.30-5.90); RDW 12.6 % (11.5-15.5); WBC 7.6 k/uL (3.8-10.6)
[2020-01-10 08:14] VITALS: BP 124/78; RESP 16; TEMP 98
[2020-01-10] MEDS: predniSONE 10 MG TAB PO SCH (08:20)
[2020-01-10] MEDS: FAMOTIDINE 20 MG TAB PO SCH (08:21)
[2020-01-10] MEDS: AZITHROMYCIN 500 MG TAB PO SCH (08:21)
[2020-01-10] MEDS: MULTIVITAMINS, THERA 1 EACH TAB PO SCH (08:21)
[2020-01-10] MEDS: ENOXAPARIN 40 MG/0.4 ML SYRINGE SQ SCH (08:21)
[2020-01-10] MEDS: ZINC SULFATE 220 MG CAP PO SCH (08:21)
[2020-01-10] MEDS: FLUTICASONE 50MCG/SPRAY NASAL 16GM EA NOSTRIL SCH (08:22)
[2020-01-10 09:11] LABS: African American GFR (CKD) 131.3 (60.0-200.0); Anion Gap 7.1 mmol/L (4.00-12.00); BUN/Creat Ratio 16.25 Ratio (12.00-20.00); C Reactive Protein 0.6 mg/dL (0.0-0.8); Calcium 8.6 mg/dL (8.7-10.3); Carbon Dioxide 26.9 mmol/L (21.6-31.8); Non-African American GFR(CKD) 113.3 (60.0-200.0); Potassium 4.1 mmol/L (3.5-5.5)
[2020-01-10] MEDS: ALBUTEROL HFA INHALER INHALATION SCH ×2 (09:28→13:49)
[2020-01-10] MEDS: SYMBICORT 160-4.5 MCG INHALER INHALATION SCH (09:28)
[2020-01-10 09:48] VITALS: PULSE 88
--- NOTE | 2020-01-10 14:41 | P.PN ---
Subjective Progress Note Date: 01/10/20 Principal diagnosis: CoVID 19 pneumonitis This is a very pleasant 39-year-old gentleman who follows with Dr. Smith as his primary care provider. He has a history of asthma treated with Advair, Singulair and albuterol in the outpatient setting. Approximately 1 week ago he developed fever, chills, diarrhea, worsening shortness of breath cough and congestion. He did test positive for CoVID 19 and was treating his symptoms at home. Yesterday he had worsening fatigue and fever and presented to [facility] and subsequently transferred here by EMS for further evaluation and care. He feels he may have been exposed at work where coworkers have been positive. He works at the [employer]. Chest x-ray reveals left mid to lower lung acute infiltrates and stent right midlung infiltrate. He is seen today in consultation on the regular medical floor. He is currently sitting up in bed. Awake and alert in no acute distress. He is maintaining O2 saturation in the mid 90s on 2 L/m per nasal cannula. T-max 101.9. Currently 99.4. White count 7.7. Hemoglobin 15.4. RDW 12.4. Platelets 133. Sodium 135. Potassium 3.8. Creatinine 1.04. Inflammatory markers added today revealed fibrinogen 573. LDH 847. Creatinine kinase 318. C-reactive protein 69.2. D- dimer 0.25. He's been initiated on azithromycin, Pepcid, Lovenox 40 mg daily, prednisone. Continue on Symbicort, albuterol, Singulair. The patient is seen today 01/04/2020 in follow-up on the regular medical floor. He is currently sitting up in bed. Awake and alert in no acute distress. He is comfortable at rest however went up doing any minimal activity he gets significant dyspnea on exertion. He is now on 3 L nasal cannula and maintaining O2 saturation in the low 90s. Computed tomography scan of the chest without contrast from yesterday revealed patchy bilateral airspace pneumonia. Mild patchy pleural thickening and atelectasis posterior lung bases. Mild fatty infiltration of the liver. White count 9.5. Hemoglobin 13.5. D-dimer 0.22. Sodium 137. Potassium 4.1. Creatinine 1.0. LDH 338. C-reactive protein 7.4. Pro-calcitonin 0.16. He remains on Lovenox, Pepcid, prednisone, zinc. Antibiotics in the form of azithromycin. Symbicort and bronchodilators. On 01/05/2020 patient seen in follow-up on a general medical surgical floor. He is awake and alert, in no acute distress, patient is very short of breath with any exertion, occasional cough, no chest pain, he is on 3-4 L of supplemental oxygen, his pulse ox of 93%, he has been having intermittent fevers, with T-max of 101.5F in last 24 hours. Today's chest x-ray shows findings compatible with atypical pneumonia, with possibility of slight improvement from recent comparison. Patient was started on his first dose of Remdesivir. He is on Lovenox 40 mg subcu twice daily, azithromycin and Rocephin, nebulized bronchodilators, oral prednisone at 30 mg daily, and zinc supplement. Today's labs have been reviewed white count is 12.4, hemoglobin is 13.9, d-dimer is 0.22, electric with renal profile were within normal limits, LDH is 349, CRP is 10, pro-calcitonin was 0.16 On 01/06/2020 patient seen in follow-up on general medical surgical floor, he is resting comfortably in bed still has exertional dyspnea, still requiring supplemental oxygen, currently at 3 L, with pulse ox of 95%, his been afebrile in the last 24 hours, hemodynamically patient is stable, as no cough with no significant phlegm production. No complaints of chest pain. Cough has improved, no nausea vomiting or diarrhea, no abdominal pain. Patient has been started on Remdesivir, he received his first dose yesterday, he is due for his second dose today. ID service is following, patient is also on Rocephin and az ithromycin. Today's lab 7 reviewed, CBC is within normal limits, electrolytes and renal profile are unremarkable, LDH has slightly trended up, up to 395 from 349 9 yesterday's labs, CRP is 8.6, on the decline, pro-calcitonin was 0.16, d- dimer was not elevated at 0.22, patient is on Lovenox 40 mg twice daily, patient is on oral steroids prednisone 30 mg daily, and inhalers including Symbicort and rescue inhaler. On 01/07/2020 patient seen in follow-up on medical surgical floor. Patient is awake and alert, resting quietly in bed, on 3 L of oxygen pulse ox is 94%, FiO2 was dropped down to 2 L, and did remain at 92%, no worsening dyspnea, mild cough, no significant phlegm production, follow-up chest x-ray was obtained today, showing stable bilateral multifocal infiltrates. Patient has been afebrile, hemodynamically patient has been stable, lung sounds are clear, no rhonchi or wheezing no crackles. Sputum culture has shown no growth to date. Patient remains on azithromycin, and Rocephin, he is on oral dose prednisone 30 mg daily, he will receive his third dose of Remdesivir, appetite is poor, but no nausea vomiting or diarrhea. On 01/08/2020 patient seen in follow-up on medical surgical floor. Remains on 2 L of oxygen, his pulse ox is 90-94%, patient is afebrile, hemodynamically patient is stable, denies any dyspnea, denies any chest pain, occasional nonproductive cough, the cough has improved, not much of an appetite, but no diarrhea, no nausea or vomiting. Patient is receiving Remdesivir, he is supposed to get his fourth dose today, no new labs today. Patient remains on azithromycin and Rocephin, oral dose prednisone, and nebulized bronchodilators, he is on oral Pepcid, zinc supplement, and Lovenox 40 mg twice daily. No abdominal pain, no diarrhea. On 01/09/2020 patient seen in follow-up for general medical surgical floor, he states he is feeling better, he is receiving his final dose of Remdesivir to complete his 5 day course of Remdesivir. His had no fevers or chills, he is on 2 L of oxygen with pulse ox of 93-95%, breathing seems to be comfortable, no compressive chest pain, cough has significantly improved, there is no phlegm production, no tachycardia, no fever or chills, no diarrhea, no nausea or vomiting, today's labs have been reviewed, showing white blood cell count 7.1, hemoglobin of 15.3, his pro-calcitonin was negative at 0.08, his sputum culture revealed evidence of MSSA, patient was treated with a combination of azithromycin and Rocephin. He is on prednisone at 30 mg, and nebulized bronchodilators, he is on Lovenox 40 mg twice daily, and Pepcid twice daily. Breathing has improved, no wheezing, no rhonchi, just diminished breath sounds at the bases patient has been tolerating ablation about the room, no distress The patient is seen today 01/10/2020 and follow-up on the regular medical floor. He is currently sitting up at the bedside. Awake and alert in no acute distress. He has completed his course of Remdesivir. He denies any worsening shortness of breath, cough or congestion. No fever, chills or night sweats. Maintaining O2 saturations in the low 90s on room air following a 6 minute walk. Sputum culture was positive for MSSA. White count 7.6. Hemoglobin 14.8. Lymphocytes 1.5 Sodium 139. Potassium 4.1. Creatinine 0.8. LDH 246. C- reactive protein 0.6. He remains on Symbicort, DuoNeb inhalations, Singulair, oral prednisone, zinc, Pepcid, Lovenox. Objective - Vital Signs Vital signs: Vital Signs Temp 98 F 01/10/20 07:25 Pulse 88 01/10/20 09:47 Resp 16 01/10/20 09:29 BP 124/78 01/10/20 07:25 Pulse Ox 92 L 01/10/20 09:20 Intake & Output 01/09/20 01/10/20 01/10/20 18:59 06:59 18:59 Intake Total 350 240 Balance 350 240 Intake: Oral 350 240 Other: Voiding Method Toilet Toilet # Voids 2 1 - Exam GENERAL EXAM: Alert, very pleasant 39-year-old gentleman, on room air, fairly comfortable in no apparent distress. HEAD: Normocephalic. EYES: Normal reaction of pupils, equal size. NOSE: Clear with pink turbinates. THROAT: No erythema or exudates. NECK: No masses, no JVD. CHEST: No chest wall deformity. LUNGS: Equal air entry with few scattered rhonchi. CVS: S1 and S2 normal with no audible murmur, regular rhythm. ABDOMEN: No hepatosplenomegaly, normal bowel sounds, no guarding or rigidity. SPINE: No scoliosis or deformity SKIN: No rashes CENTRAL NERVOUS SYSTEM: No focal deficits, tone is normal in all 4 extremities. EXTREMITIES: There is no peripheral edema. No clubbing, no cyanosis. Peripheral pulses are intact. - Labs CBC & Chem 7: 01/10/20 06:37 01/10/20 06:37 Labs: Abnormal Lab Results - Last 24 Hours (Table) 01/09/20 01/10/20 01/10/20 Range/Units 07:22 06:37 06:37 Plt Count 468 H (150-450) k/uL Calcium 8.6 L (8.7-10.3) mg/dL Lactate Dehydrogenase 284 H (120-246) U/L C-Reactive Protein 1.1 H (0.0-0.8) mg/dL Assessment and Plan Assessment: 1 Acute CoVID 19 pneumonitis, recovering, completed a course of Remdesivir 2 Acute hypoxic respiratory failure secondary to above 3 Acute exacerbation of moderate persistent chronic bronchial asthma 4 Elevated inflammatory markers secondary to above, improved Plan: The patient was seen and evaluated by Dr. Gore He is cleared for discharge from the pulmonary standpoint Continue self-isolation Follow-up in our office in 1-2 weeks' time He is encouraged to call sooner with any recurrence of symptoms or other questio ns or concerns I, the cosigning physician, performed a history & physical examination of the patient. Lungs sounds with few scattered rhonchi. Maintaining good O2 saturations in the 90s on room air. I discussed the assessment and plan of care with my nurse practitioner, Jennifer Perez. I attest to the above note as dictated by her.
--- NOTE | 2020-01-10 17:22 | PN ---
PROGRESS NOTE DATE OF SERVICE: 01/10/2020 REASON FOR FOLLOWUP: Acute COVID-19 pneumonia. INTERVAL HISTORY: Patient is currently afebrile. Patient is breathing comfortably, currently on room air satting 93%. The patient denies having any chest pain. No shortness of breath. Minimal cough. No nausea. No abdominal pain. No diarrhea. EXAMINATION: Blood pressure 124/72 with a pulse of 66, temperature 98. He is 96% on room air. General description is a middle-aged male up in the bed in no distress. Respiratory system: Unlabored breathing, decreased breath sounds. Heart S1, S2. Regular rate and rhythm. Abdomen soft, no tenderness. LABS: Hemoglobin is 14, white count 7.6, creatinine 0.8. Sputum is showing Staph aureus. DIAGNOSTIC IMPRESSION AND PLAN: Patient with acute COVID-19 pneumonia. Completed his 5-day course of Remdesivir with sputum showing Staph aureus. He will finish therapy with short course of oral Ceftin on outpatient setting. Prescription has been sent and close outpatient followup. MMODL / IJN: [id number] /
--- NOTE | 2020-01-10 18:01 | DS ---
DISCHARGE SUMMARY DATE OF SERVICE: 01/10/2020 FINAL DIAGNOSES: 1. Acute Covid-19 infection with acute bilateral pneumonia possibly viral pneumonia with acute hypoxic respiratory failure secondary to COVID-19 as well as sepsis, present on admission. 2. Hypoalbuminemia. 3. Hyponatremia. 4. Acute on chronic bronchial asthma, acute exacerbation, with chronic intermittent bronchial asthma as baseline. 5. Thrombocytopenia, improved. 6. Elevated LDH, increased creatinine kinase, increased CRP. 7. History of bronchial asthma. 8. History of gastroesophageal reflux disease. 9. Elevated procalcitonin. 10.Continued fever, improved. DISCHARGE DISPOSITION: The patient being discharged in stable condition with guarded prognosis. Total time taken 35 minutes. HISTORY OF PRESENT ILLNESS: This 39-year-old gentleman with a past medical history of multiple medical problems being followed by Dr. Smith in the outpatient setting was admitted with Covid-19 pneumonia with acute hypoxic respiratory failure. The patient was treated with bronchodilators and the patient was also given Remdesivir. Dr. Castillo of Infectious Disease Dr. Gore and Pulmonary saw the patient. Patient improved significantly. The patient is 93% on oxygen on resting and 90% on ambulation at this time without supplemental oxygen. The patient being discharged in stable condition with guarded prognosis. On exam, vitals are stable. Cardiovascular: S1, S2. Respiration: Few scattered rhonchi. DISCHARGE ADVICE AND MEDICATIONS: 1. Discharge diet is cardiac diet. 2. Activity limited until followup. 3. Follow up with Dr. Smith in 1 to 2 days. 4. Follow up with Infectious Disease and Pulmonary as recommended. DISCHARGE MEDICATIONS: 1. Advair 1 b.i.d. 2. Fluticasone 1-2 sprays nasal as before. 3. Singulair 10 mg q.h.s. 4. Ceftin 500 mg p.o. b.i.d. for 3 days. 5. Multivitamins 1 p.o. daily. 6. Oral zinc 220 mg p.o. b.i.d. 7. Pepcid 20 mg p.o. b.i.d. 8. Prednisone 40 mg daily for 3 days, 30 for 3 days, 20 for 3 days, 10 for 3 days. 9. Symbicort 1 puff b.i.d. 10.Tylenol p.r.n. 11.Ventolin p.r.n. Once again the patient being discharged in stable condition. Guarded prognosis. MMODL / IJN: [id number] /
--- NOTE | 2020-01-14 09:29 | ECHOF ---
Referral Reason:covid MEASUREMENTS -------- HEIGHT: 182.9 cm WEIGHT: 99.8 kg BP: RVIDd: 3.6 cm (< 3.3) IVSd: 0.9 cm (0.6 - 1.1) LVIDd: 5.0 cm (3.9 - 5.3) LVPWd: 1.1 cm (0.6 - 1.1) IVSs: 1.5 cm LVIDs: 3.5 cm LVPWs: 1.6 cm LA Diam: 3.8 cm (2.7 - 3.8) Ao Diam: 3.0 cm (2.0 - 3.7) AV Cusp: 2.1 cm (1.5 - 2.6) LA Diam: 4.0 cm (2.7 - 3.8) MV EXCURSION: 24.350 mm (> 18.000) MV EF SLOPE: 87 mm/s (70 - 150) EPSS: 0.3 cm MV E Lion: 0.65 m/s MV DecT: 172 ms MV A Lion: 0.65 m/s MV E/A Ratio: 1.00 RAP: 5.00 mmHg FINDINGS -------- Sinus rhythm. This was a technically good study. LV size, wall thickness and systolic function are normal, with an EF greater than 55%. The left tiffanie tricular size is normal. The right ventricle is normal in size. The left atrial size is normal. The right atrial size is normal. There is mild aortic valve sclerosis. There is no evidence of aortic regurgitation. Mild mitral regurgitation is present. Mild tricuspid regurgitation present. Right ventricular systolic pressure is normal at < 35 mmHg. There is no pulmonic regurgitation present. The aortic root size is normal. There is no pericardial effusion. CONCLUSIONS -------- 1. LV size, wall thickness and systolic function are normal, with an EF greater than 55%. 2. The left ventricular size is normal. 3. The right ventricle is normal in size. 4. The left atrial size is normal. 5. The right atrial size is normal. 6. There is mild aortic valve sclerosis. 7. Mild mitral regurgitation is present. 8. Mild tricuspid regurgitation present. 9. The aortic root size is normal. 10. There is no pericardial effusion. MANAGER ELECTRONIC: Lo Sweet RDCS
== END 2020-01-10 15:28 | disposition home or self-care (01) | DRG 871 ==
LOC: EC 17:55 → 4SSUR 18:24 → UNDODISIN 01-10 13:36
PROVIDERS: ADMIT Hospitalist; ATTEND Hospitalist
DX: A41.89 Other specified sepsis (principal); U07.1 COVID-19; J12.89 Other viral pneumonia; J96.01 Acute respiratory failure with hypoxia; J15.211 Pneumonia due to Methicillin susceptible Staphylococcus aureus; J45.901 Unspecified asthma with (acute) exacerbation; E87.1 Hypo-osmolality and hyponatremia; J98.11 Atelectasis; K76.0 Fatty (change of) liver, not elsewhere classified; K21.9 Gastro-esophageal reflux disease without esophagitis; D69.6 Thrombocytopenia, unspecified; R74.01 Elevation of levels of liver transaminase levels; E88.09 Other disorders of plasma-protein metabolism, not elsewhere classified; Z79.01 Long term (current) use of anticoagulants; Z98.890 Other specified postprocedural states; Z79.899 Other long term (current) drug therapy
CPT/HCPCS: 71045; 71250; 80048; 80053; 81003; 82550; 82728; 83615; 83735; 83880; 84145; 84484; 85025; 85379; 85384; 85610; 86140; 87070; 87077; 87186; 87205; 93005; 93306; 94640; 94760; 99285